=== PATIENT | male | born 1970 | race Caucasian/White ===

== ENCOUNTER 2020-11-16 10:27 | Outpatient (CLI) | payer BC, SELFPAY ==
[2020-11-16 10:46] LABS: Basophils Percent Auto 0.3 % (0.2-1.2); Eosinophils Absolute Auto 0.1 K/mm3 (0-0.3); Eosinophils Percent Auto 1.6 % (0-4.4); Hematocrit 44.5 % (42.0-52.0); Hemoglobin 15.2 g/dL (14.0-18.0); Immature Granulocyte Absolute 0.04 K/mm3 (0.00-0.031); Immature Granulocyte Percent A 0.6 % (0-0.5); Lymphocytes Absolute Auto 1.91 K/mm3 (0.9-3.2); Lymphocytes Percent Auto 30.6 % (18.3-44.2); Mean Corpuscular HGB Conc 34.2 g/dl (32-36); Mean Corpuscular Hemoglobin 29.9 pg (26-34); Mean Corpuscular Volume 87.4 fl (80-100); Mean Platelet Volume 10.2 fl (7.4-10.4); Monocytes Absolute Auto 0.5 K/mm3 (0.1-0.6); Monocytes Percent Auto 8.5 % (2.6-8.5); Neutrophils Absolute Auto 3.6 K/mm3 (1.3-6.7); Neutrophils Percent Auto 58.4 % (45.5-73.1); Platelet Count Result 196 k/mm3 (150-375); Red Blood Count 5.09 M/mm3 (4.6-6.20); Red Cell Distribution Width 13.5 % (11.5-14.5); White Blood Count 6.2 K/mm3 (4.5-10.0)
[2020-11-16 10:58] LABS: Alanine Aminotransferase 39 U/L (4-50); Albumin Level 4.1 g/dL (3.5-5.1); Alkaline Phosphatase 77 U/L (38-126); Anion Gap 6 mmol/L (8-16); Aspartate Amino Transferase 26 U/L (17-59); Bilirubin,Total 0.4 mg/dL (0.2-1.3); Blood Urea Nitrogen 15 mg/dL (9-20); Calcium 8.6 mg/dL (8.4-10.2); Carbon Dioxide 29 mmol/L (22-30); Chloride 103 mmol/L (98-107); Cholesterol 169 mg/dL (0-200); Estimated Glomerular Filt Rate > 60; Glucose 99 mg/dL (75-110); HDL Direct 36 mg/dL; Potassium 4.5 mmol/L (3.4-5.0); Sodium 138 mmol/L (137-145); Triglycerides 130 mg/dL (<150)
[2020-11-16 11:09] LABS: LDL Cholesterol Direct 103 mg/dL
== END 2020-11-16 10:28 | disposition home or self-care (01) ==
PROVIDERS: PCP Internal Medicine; Visit Provider Nurse Practitioner
DX: E78.5 Hyperlipidemia, unspecified (principal); I10 Essential (primary) hypertension
CPT/HCPCS: 36415; 80053; 80061; 85025

== ENCOUNTER 2021-09-08 10:49 | Outpatient (CLI) | payer BC, SELFPAY ==
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
== END 2021-09-08 10:50 | disposition home or self-care (01) ==
PROVIDERS: PCP Internal Medicine; Visit Provider Clinical Nurse Specialist
DX: M47.812 Spondylosis without myelopathy or radiculopathy, cervical region (principal)
CPT/HCPCS: 72040

== ENCOUNTER 2022-01-04 08:51 | Outpatient (CLI) | payer BC, SELFPAY ==
[2022-01-04 09:36] LABS: Hematocrit 42.3 % (42.0-52.0); Hemoglobin 14.2 g/dL (14.0-18.0); Mean Corpuscular HGB Conc 33.6 g/dl (32-36); Mean Corpuscular Hemoglobin 29.8 pg (26-34); Mean Corpuscular Volume 88.7 fl (80-100); Mean Platelet Volume 10.8 fl (7.4-10.4); Platelet Count Result 190 k/mm3 (150-375); Red Blood Count 4.77 M/mm3 (4.6-6.20); Red Cell Distribution Width 13.9 % (11.5-14.5); White Blood Count 6.4 K/mm3 (4.5-10.0)
[2022-01-04 09:53] LABS: Alanine Aminotransferase 30 U/L (4-50); Alkaline Phosphatase 69 U/L (38-126); Anion Gap 5 mmol/L (8-16); Aspartate Amino Transferase 26 U/L (17-59); Bilirubin,Total 0.4 mg/dL (0.2-1.3); Blood Urea Nitrogen 15 mg/dL (9-20); Calcium 8.5 mg/dL (8.4-10.2); Carbon Dioxide 27 mmol/L (22-30); Chloride 105 mmol/L (98-107); Cholesterol 144 mg/dL (0-200); Estimated Glomerular Filt Rate > 60; Glucose 106 mg/dL (65-110); HDL Direct 32 mg/dL; Potassium 4.6 mmol/L (3.4-5.0); Sodium 137 mmol/L (137-145); Triglycerides 133 mg/dL (<150)
[2022-01-04 10:03] LABS: LDL Cholesterol Direct 79 mg/dL
== END 2022-01-04 08:52 | disposition home or self-care (01) ==
LOC: ANHLAB 08:53
PROVIDERS: PCP Internal Medicine; Visit Provider Nurse Practitioner
DX: I10 Essential (primary) hypertension (principal)
CPT/HCPCS: 36415; 80053; 80061; 85025

== ENCOUNTER 2023-06-30 19:08 | Emergency (ER) | payer BC, SELFPAY ==
--- NOTE | ~2023-06-30 | XR_ITS ---
EXAMINATION: XR chest 1V portable DATE: 06/30/2023 20:21 INDICATION: Wheezing. Cough. Shortness of breath. TECHNIQUE: A single frontal view of the chest was obtained. COMPARISON: None. FINDINGS: There are airspace opacities in right lower lung zone. No pleural effusion or pneumothorax. The heart size is normal. IMPRESSION: 1. Airspace opacities in right lower lung zone, consistent with atelectasis versus pneumonia. Reviewed, dictated and finalized at location E. IMPRESSION: 1. Airspace opacities in right lower lung zone, consistent with atelectasis kaylie manny pneumonia.
[2023-06-30 19:10] VITALS: BP 194/81; PULSE 84; RESP 16; TEMP 36.3; O2SAT 98
[2023-06-30] MEDS: ACETAMINOPHEN 500 MG TABLET 1000 MG PO (19:41)
[2023-06-30 19:45] VITALS: O2SAT 98
[2023-06-30] MEDS: ALBUTEROL SULFATE NEB 2.5 MG/3 ML INH 5 MG INHALATION (20:03)
[2023-06-30] MEDS: IPRATROPIUM BR 0.02% INH SOLN 0.5 MG/2.5 ML VIAL INHALATION (20:03)
[2023-06-30 20:04] VITALS: PULSE 80; RESP 16
[2023-06-30 20:23] LABS: Influenza A QL RT-PCR Negative (Negative); Influenza B QL RT-PCR Negative (Negative); RSV RNA, RT-PCR Negative (Negative); SARS-CoV-2 RNA PCR Negative (Negative)
--- NOTE | 2023-06-30 20:25 | ED.GENADULT ---
HPI - General Adult General Chief complaint: Fever Stated complaint: cough, low grade fever Time Seen by Provider: 06/30/23 19:20 History of Present Illness HPI narrative: This is a 52-year-old male presenting ED with chief complaint of cold symptoms. Patient says that he has been having a cough for about 7 days. He has had some subjective fevers and chills was temperature is never gone above 99. Patient denies chest pain, difficulty breathing, abdominal pain, nausea vomiting diarrhea or sore throat. Patient is for help with his cough. Related Data Home Medications Medication Instructions Recorded Confirmed omega-3 fatty acids 1,000 mg 1,000 mg PO DAILY 11/24/20 01/03/22 capsule (Fish Oil Concentrate) Allergies Allergy/AdvReac Type Severity Reaction Status Date / Time No Known Allergies Allergy Mild Verified 06/30/23 19:08 [facility] Past Medical History Medical History Cervical spondylosis Hyperlipidemia Hypertension Lipoma removed 2015 Family History Family History Father Hypertension Sibling Acute myocardial infarction Grandparent Acute myocardial infarction Mother Atrial fibrillation Social History Social History Smoking status: Never smoker Smoking end date: 11/18/11 Alcohol intake: current Exam Narrative: APPEARANCE: No apparent distress. Head: atraumatic. EYES: EOMI, NOSE: Atraumatic NECK: Trachea midline RESPIRATORY: No increased rate of breathing, scattered expiratory wheezes CARDIOVASCULAR: RRR, no peripheral edema ABDOMINAL: Non-distended MUSCULOSKELETAl: No obvious deformities NEURO: Alert. Moving 4/4 extremities SKIN:: Warm, dry. Normal color PSYCHIATRIC: Normal affect Course Vital Signs Vital signs: Vital Signs Temperature 97.4 F L 06/30/23 19:10 Pulse Rate 84 06/30/23 19:10 Respiratory Rate 16 06/30/23 19:10 Blood Pressure 194/81 H 06/30/23 19:10 Pulse Oximetry 98 06/30/23 19:10 Oxygen Delivery Room Air 06/30/23 19:10 Temperature 97.4 F L 06/30/23 19:10 Pulse Rate 80 06/30/23 20:04 Respiratory Rate 16 06/30/23 20:04 Blood Pressure 194/81 H 08/13/23 19:10 Pulse Oximetry 98 06/30/23 19:45 Oxygen Delivery Room Air 06/30/23 19:45 Medical Decision Making [facility] Narrative Medical decision making narrative: -Presentation: 52-year-old male presenting with 7 days of cough. 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 Chest x-ray showed opacities in the right lower lobe, atelectasis versus pneumonia. -Interventions: DuoNeb treatment, dexamethasone, Augmentin, doxycycline -Shared decision making / Disposition: 52-year-old male presenting with cough, lung findings and infiltrates on x-ray. He is well-appearing with stable vital signs on requiring supplemental oxygen. He will be discharged on a course of antibiotics for community-acquired pneumonia. -RX Augmentin, doxycycline, Motrin, Tylenol Vital Signs Vital Signs: Vital Signs Temperature 97.4 F L 06/30/23 19:10 Pulse Rate 84 06/30/23 19:10 Respiratory Rate 16 06/30/23 19:10 Blood Pressure 194/81 H 06/30/23 19:10 Pulse Oximetry 98 06/30/23 19:10 Oxygen Delivery Room Air 06/30/23 19:10 Temperature 97.4 F L 06/30/23 19:10 Pulse Rate 80 06/30/23 20:04 Respiratory Rate 16 06/30/23 20:04 Blood Pressure 194/81 H 06/30/23 19:10 Pulse Oximetry 98 06/30/23 19:45 Oxygen Delivery Room Air 06/30/23 19:45 Lab Data Labs: Lab Results 06/30/23 Range/Units 19:43 Influenza A (RT-PCR) Negative (Negative)
[2023-06-30] MEDS: DOXYCYCLINE HYCLATE 100 MG TABLET PO (20:39)
[2023-06-30] MEDS: AMOXICILLIN/CLAVULANATE K 875-125 MG TAB 1 TABLET PO (20:39)
[2023-06-30 20:46] VITALS: BP 188/72; PULSE 89; RESP 20; O2SAT 96
== END 2023-06-30 20:48 | disposition home or self-care (01) ==
PROVIDERS: Emergency Provider Emergency Medicine; PCP Internal Medicine
DX: J18.9 Pneumonia, unspecified organism (principal); Z20.822 Contact with and (suspected) exposure to COVID-19; E78.5 Hyperlipidemia, unspecified; I10 Essential (primary) hypertension
CPT/HCPCS: 71045; 87637; 94640; 96372; 99283; A9270; J1100

== ENCOUNTER 2023-07-12 13:40 | Emergency (ER) | payer BC, SELFPAY ==
[2023-07-12] VITALS (11 sets, daily range): BP systolic 144–187; BP diastolic 87–103; PULSE 72–77; RESP 18; TEMP 37.1; O2SAT 95–98
--- NOTE | ~2023-07-12 | XR_ITS ---
EXAMINATION: XR chest 1V portable INDICATION: Cough and shortness of breath TECHNIQUE: Portable AP chest at 1559 hours COMPARISON: 06/30/2023 FINDINGS: The lungs are free of acute opacities. No pleural effusion or pneumothorax. The cardiomedia stinal silhouette is normal. IMPRESSION: 1. No acute cardiopulmonary abnormality. Reviewed, dictated and finalized at location A.
[2023-07-12 16:26] LABS: Basophils Percent Auto 0.4 % (0.2-1.2); Eosinophils Absolute Auto 0.2 K/mm3 (0-0.3); Eosinophils Percent Auto 3.2 % (0-4.4); Hematocrit 46.6 % (42.0-52.0); Hemoglobin 15.2 g/dL (14.0-18.0); Immature Granulocyte Absolute 0.04 K/mm3 (0.00-0.031); Immature Granulocyte Percent A 0.6 % (0-0.5); Lymphocytes Absolute Auto 2.18 K/mm3 (0.9-3.2); Lymphocytes Percent Auto 31.4 % (18.3-44.2); Mean Corpuscular HGB Conc 32.6 g/dl (32-36); Mean Corpuscular Hemoglobin 29.9 pg (26-34); Mean Corpuscular Volume 91.7 fl (80-100); Mean Platelet Volume 10.6 fl (7.4-10.4); Monocytes Absolute Auto 0.6 K/mm3 (0.1-0.6); Monocytes Percent Auto 8.6 % (2.6-8.5); Neutrophils Absolute Auto 3.9 K/mm3 (1.3-6.7); Neutrophils Percent Auto 55.8 % (45.5-73.1); Platelet Count Result 214 k/mm3 (150-375); Red Blood Count 5.08 M/mm3 (4.6-6.20); Red Cell Distribution Width 13.9 % (11.5-14.5)
[2023-07-12 16:35] LABS: Alanine Aminotransferase 38 U/L (6-50); Albumin Level 4.4 g/dL (3.5-5.1); Alkaline Phosphatase 73 U/L (38-126); Anion Gap 6 mmol/L (8-16); Aspartate Amino Transferase 28 U/L (17-59); Bilirubin,Total 0.5 mg/dL (0.2-1.3); Blood Urea Nitrogen 11 mg/dL (9-20); Calcium 8.6 mg/dL (8.4-10.2); Carbon Dioxide 28 mmol/L (22-30); Chloride 104 mmol/L (98-107); Estimated Glomerular Filt Rate > 60; Glucose 96 mg/dL (65-110); Potassium 4.4 mmol/L (3.4-5.0); Sodium 138 mmol/L (137-145)
--- NOTE | 2023-07-12 16:39 | ED.URI ---
HPI - URI/Sore Throat General Chief Complaint: Upper Respiratory Infection Stated Complaint: pna symptoms not getting better Time Seen by Provider: 07/12/23 16:28 History of Present Illness HPI Narrative: Patient is a 52-year-old male here with respiratory symptoms. He states that a few weeks ago he was diagnosed with pneumonia, placed on Augmentin and doxycycline and completed this antibiotic course. He was slowly improving on this antibiotic and seems to have plateaued. He notes he continues to have a cough with some sputum production. Sputum is green or yellow in color. He is additionally noticed some wheezing which she has been using a inhaler for. The inhaler seems to help with his wheezing. He contact his primary care doctor who advised to come into the emergency department for evaluation given continuation of symptoms. He denies any fever chills. He denies any sick contacts or any symptoms. No headache, rhinorrhea. He notes that he was tested for COVID on last visit. Related Data Home Medications Medication Instructions Recorded Confirmed omega-3 fatty acids 1,000 mg 1,000 mg PO DAILY 11/24/20 07/04/23 capsule (Fish Oil Concentrate) Allergies Allergy/AdvReac Type Severity Reaction Status Date / Time No Known Allergies Allergy Mild Verified 07/12/23 15:47 Review of Systems Review of Systems: CONSTITUTIONAL: Denies fever, chills, or sweats. EYES: Denies visual changes, redness, or discharge. ENT: Denies rhinorrhea, congestion, sore throat, or otalgia. CARDIOVASCULAR: Denies chest pain, palpitations, or edema. RESPIRATORY: cough and dyspnea. GASTROINTESTINAL: Denies abdominal pain, nausea, vomiting, or diarrhea. GENITOURINARY: Denies dysuria or hematuria. SKIN: Denies rash or itching. MUSCULOSKELETAL: Denies back pain, joint pain, or myalgia. NEUROLOGIC: Denies headache, numbness, or weakness. PSYCHIATRIC: Denies anxiety or depression. [facility] Past Medical History Medical History Cervical spondylosis Hyperlipidemia Hypertension Lipoma removed 2015 Family History Family History Father Hypertension Sibling Acute myocardial infarction Grandparent Acute myocardial infarction Mother Atrial fibrillation Social History Social History (Updated 07/04/23 @ 13:51 by Shanna Bruno [facility]) Smoking status: Never smoker Smoking end date: 11/18/11 Alcohol intake: current Lack of Transportation: No Lack of Food: Never True Current Housing: I Have Housing Concerned About Future Housing: No Difficulty Paying Gas/Electric Bills: No Difficulty Paying for Meds: No Currently Unemployed: No Education: Master's Degree or Higher Difficulty w/ Childcare or Family Care: No Exam Narrative: GENERAL: Well-appearing, well-nourished, and in no acute distress. HEAD: Normocephalic, atraumatic. EYES: PERRLA and EOMI. ENT: Nares clear. Mucous membranes moist. NECK: Supple. CHEST: Faint expiratory wheeze at the bases. No respiratory distress. HEART: Regular rate and rhythm. Normal peripheral pulses. ABDOMEN: Soft, nontender, nondistended. EXTREMITIES: Normal range of motion. No edema. SKIN: Warm, dry, no rash. NEURO: No focal deficits. Alert and oriented x3. PSYCH: Normal mood and affect. Course Course Emergency Course: Chart review performed. Patient here with URI symptoms. Patient was diagnosed with CAP after an ED visit here on 06/30/23. He had been on Augmentin and Doxycycline. He was improving slowly on antibiotics per PCP note. Triage vitals show hypertension, no hypoxia, no fever. Triage lab work shows no leukocytosis, normal electrolytes, CXR negative. Patient seen evaluated. Blood pressures improved. History and exam consistent with possible atypical pneumonia. Will give macrolide antibiotic, azithromycin as well as refilled the albuterol inhale
== END 2023-07-12 17:58 | disposition home or self-care (01) ==
PROVIDERS: Emergency Medicine; Emergency Provider Student in an Organized Health Care Education/Training Program; PCP Internal Medicine
DX: J18.9 Pneumonia, unspecified organism (principal); R05.2 Subacute cough; E78.5 Hyperlipidemia, unspecified; I10 Essential (primary) hypertension
CPT/HCPCS: 36415; 71045; 80053; 85025; 99283

== ENCOUNTER 2023-07-17 18:13 | Inpatient (IN) | payer BC, SELFPAY ==
--- NOTE | ~2023-07-17 | XR_ITS ---
EXAMINATION: XR chest 2V Exam Date/Time: 07/17/2023 18:30 CDT HISTORY: DYSPNEA- HTN Comparison: 07/12/2023. RESULT: Lines, tubes, and devices: None. Lungs and pleura: Clear. Cardiomediastinal silhouette: Stable. Other: No acute osseous or upper abdominal finding. IMPRESSION: No acute cardiopulmonary process. Reviewed, dictated and finalized at location K.
--- NOTE | ~2023-07-17 | CT_ITS ---
EXAMINATION: CTA chest PE protocol DATE: 07/17/2023 21:59 INDICATION: dyspnea. elevated d dimer TECHNIQUE: Computed tomography angiography (CTA) of the chest was performed with 100 mL Omnipaque-350 intravenous contrast timed to evaluate the pulmonary arteries. Coronal maximum intensity projection 3D-reconstructions were created by the technologist. The dose-length product (DLP) was 1200.69 mGy-cm . Automated exposure control and iterative reconstruction technique were employed. COMPARISON: X-ray chest, same date. FINDINGS: Lung parenchyma and airways: Clear. Pleura: Unremarkable. Thoracic inlet, axillae and chest wall: Unremarkable. Thoracic aorta: Normal. Mediastinum: Enlarged prevascular and subcarinal lymph nodes. Heart and pericardium: Moderate volume pericardial effusion. Coronary artery calcifications: Absent. Upper abdomen: Ill-defined 9 mm hypodensity in the left liver lobe. Enlarged edwardo hepatic lymph node . Bones: No acute osseous finding. DISH. Pulmonary arteries: Study quality: There is considerable respiratory motion artifact in the lungs whi ch limits evaluation primarily in the segmental and subsegmental branches in the lower lobes. No pulm onary emboli detected. IMPRESSION: Motion limited examination which could obscure segmental or subsegmental emboli in the lower lobes. N o central embolus or embolus within the segmental branches of the upper lobes or right middle lobe. Moderate pericardial effusion. Mediastinal and edwardo hepatic lymphadenopathy. 9 mm left liver lobe hypodensity, likely benign and requiring no additional follow-up unless the sherrie ent is at high risk (known malignancy with propensity to metastasize to the liver, cirrhosis, or othe r hepatic risk factors) in which case consider follow-up MRI in 3-6 months. Reviewed, dictated and finalized at location K. IMPRESSION: Motion limited examination which could obscure segmental or subsegmental emboli in the lower lobes. No central embolus or embolus within the segmental branche s of the upper lobes or right middle lobe. Moderate pericardial effusion. Mediastinal and edwardo hepatic lymphadenopathy. 9 mm left liver lobe hypodensity, likely benign and requiring no additional fol low-up unless the patient is at high risk (known malignancy with propensity to metastasize to the liver, cirrhosis, or other hepatic risk factors) in which ca se consider follow-up MRI in 3-6 months.
--- NOTE | 2023-07-17 18:49 | ECG_ITS ---
Measurements Intervals Anselmo Rate: 84 P: 71 WI: 139 QRS: 61 QRSD: 104 T: 31 QT: 348 QTc: 411 Interpretive Statements SINUS RHYTHM LOW QRS VOLTAGE IN PRECORDIAL LEADS [QRS DEFLECTION < 1.0 mV IN CHEST LEADS] POSSIBLE INFERIOR MYOCARDIAL INFARCTION , PROBABLY OLD [30 ms Q WAVE IN II/aVF] ABNORMAL ECG NO PREVIOUS ECG AVAILABLE FOR COMPARISON Electronically Signed On 07-18-2023 9:44:33 CDT by Orion Baker M.D.
[2023-07-17] MEDS: ALBUTEROL SULFATE NEB 2.5 MG/3 ML INH INHALATION ×2 (19:02→21:22)
[2023-07-17 19:03] VITALS: PULSE 83; RESP 18
[2023-07-17] MEDS: IPRATROPIUM BR 0.02% INH SOLN 0.5 MG/2.5 ML VIAL INHALATION ×2 (19:03→21:23)
[2023-07-17 19:05] LABS: Basophils Percent Auto 0.5 % (0.2-1.2); Eosinophils Absolute Auto 0.3 K/mm3 (0-0.3); Eosinophils Percent Auto 3.7 % (0-4.4); Hematocrit 44.9 % (42.0-52.0); Immature Granulocyte Absolute 0.03 K/mm3 (0.00-0.031); Immature Granulocyte Percent A 0.4 % (0-0.5); Lymphocytes Absolute Auto 1.64 K/mm3 (0.9-3.2); Lymphocytes Percent Auto 20.3 % (18.3-44.2); Mean Corpuscular HGB Conc 33.4 g/dl (32-36); Mean Corpuscular Hemoglobin 29.7 pg (26-34); Mean Corpuscular Volume 88.9 fl (80-100); Mean Platelet Volume 10.3 fl (7.4-10.4); Monocytes Absolute Auto 0.8 K/mm3 (0.1-0.6); Monocytes Percent Auto 9.9 % (2.6-8.5); Neutrophils Absolute Auto 5.3 K/mm3 (1.3-6.7); Neutrophils Percent Auto 65.2 % (45.5-73.1); Platelet Count Result 214 k/mm3 (150-375); Red Blood Count 5.05 M/mm3 (4.6-6.20); Red Cell Distribution Width 13.8 % (11.5-14.5); White Blood Count 8.1 K/mm3 (4.5-10.0)
[2023-07-17 19:16] LABS: Alanine Aminotransferase 32 U/L (6-50); Albumin Level 4.2 g/dL (3.5-5.1); Alkaline Phosphatase 82 U/L (38-126); Anion Gap 12 mmol/L (8-16); Aspartate Amino Transferase 24 U/L (17-59); Bilirubin,Total 0.4 mg/dL (0.2-1.3); Blood Urea Nitrogen 13 mg/dL (9-20); Calcium 8.4 mg/dL (8.4-10.2); Carbon Dioxide 22 mmol/L (22-30); Chloride 104 mmol/L (98-107); Estimated CRCL calculation 112 ml/min; Estimated Glomerular Filt Rate > 60; Glucose 111 mg/dL (65-110); Potassium 4.5 mmol/L (3.4-5.0); Sodium 138 mmol/L (137-145)
[2023-07-17 19:23] VITALS: PULSE 83; RESP 18
[2023-07-17 19:36] VITALS: BP 160/61; PULSE 83; RESP 15; O2SAT 93
--- NOTE | 2023-07-17 20:05 | ED.SOB ---
HPI - SOB/Dyspnea General Chief Complaint: Shortness of Breath/Dyspnea Stated Complaint: TROUBLE BREATHING Time Seen by Provider: 07/17/23 18:34 History of Present Illness HPI Narrative: 52-year-old male with history of hyperlipidemia and hypertension reports for evaluation for shortness of breath with a cough since 06/23, worsening over the past 2 days. Patient reported to the ED on 06/30 and was treated for focal pneumonia with doxycycline and Augmentin. He reports taking medication as directed without missing doses and states he felt a little better than plateaued became worse again. He then went to his primary care provider who advised him to come back to the ER for further evaluation. He was evaluated again in the ED on 07/12 with a normal chest x-ray and sent home with azithromycin to cover for atypicals as well as a inhaler. Patient states he did not have any improvement with the azithromycin and does have improvement with inhaler at times. He states however the past 2 days he has had significantly worsening cough and shortness of breath. Reports his cough is productive with yellow and green sputum. States he had low-grade fevers no greater than 99 degrees at the onset of symptoms, has not had a fever since. Reports the dyspnea is worse coughing and lying flat, improved when sitting up. He denies exertional dyspnea. He denies chest pain, back pain, headache, nasal congestion or sore throat, otalgia, abdominal pain, nausea or vomiting, diarrhea. He denies history of COPD, CHF or asthma. States he stopped smoking 19 years ago. He does report lower extremity edema that he has had at baseline for the past few years, no acute changes. Related Data Home Medications Medication Instructions Recorded Confirmed omega-3 fatty acids 1,000 mg 1,000 mg PO DAILY 11/24/20 07/18/23 capsule (Fish Oil Concentrate) benazepril 40 mg tablet 40 mg PO DAILY 07/18/23 07/18/23 Allergies Allergy/AdvReac Type Severity Reaction Status Date / Time No Known Allergies Allergy Mild Verified 07/12/23 15:47 Review of Systems Review of Systems: CONSTITUTIONAL: Denies fever, chills EYES: Denies visual changes, redness, or discharge. ENT: Denies rhinorrhea, congestion, sore throat, or otalgia. CARDIOVASCULAR: Denies chest pain, palpitations, or edema. RESPIRATORY: See HPI GASTROINTESTINAL: Denies abdominal pain, nausea, vomiting, or diarrhea. GENITOURINARY: Denies dysuria or hematuria. SKIN: Denies rash or itching. MUSCULOSKELETAL: Denies back pain, joint pain, or myalgia. NEUROLOGIC: Denies headache, numbness, dizziness, or weakness. PSYCHIATRIC: Denies anxiety or depression. [facility] Past Medical History Medical History (Updated 07/18/23 @ 00:23 by Justin Farah MD) Cervical spondylosis COPD (chronic obstructive pulmonary disease) Hyperlipidemia Hypertension Lipoma removed 2016 Morbid obesity due to excess calories Family History Family History Father Hypertension Sibling Acute myocardial infarction Grandparent Acute myocardial infarction Mother Atrial fibrillation Social History Social History Smoking status: Former smoker Smoking end date: 11/18/11 Alcohol intake: current Drinks per week: 8 Substance use: never Lack of Transportation: No Lack of Food: Never True Current Housing: I Have Housing Concerned About Future Housing: No Difficulty Paying Gas/Electric Bills: No Difficulty Paying for Meds: No Currently Unemployed: No Education: Don't Know Difficulty w/ Childcare or Family Care: No Spiritual care concerns: No Exam Narrative: GENERAL: Well-appearing, in no acute distress. Patient resting comfortably in exam bed. He is pleasant and conversational. HEAD: Normocephalic EYES: PERRLA ENT: Nares clear. Mucous membranes moist. Oropharynx without tonsillar hypertrophy exudat
[2023-07-17 20:12] VITALS: BP 166/82; PULSE 79; RESP 15; TEMP 36.9; O2SAT 92
[2023-07-17 20:34] LABS: NT Pro B Type Natriuretic Pept 64 pg/mL (19.9-100); Troponin I < 0.012 ng/mL (0.000-0.034)
[2023-07-17 20:35] LABS: D Dimer 0.51 ug/mL (<0.48)
[2023-07-17] MEDS: methylPREDNISolone SOD SUCC 125 MG VIAL IV PUSH (20:39)
[2023-07-17 21:20] VITALS: PULSE 83; RESP 18
[2023-07-17 21:32] LABS: Alveolar/Arterial O2 Gradient 33.8 mmHg; Fractional Inspired Oxygen 21 %; HCO3 ABG 23.5 mEq/l (22.0-26.0); Oxygen Content ABG 20.7 %vol (16.0-22.0); Oxyhemoglobin 93.2 % THb (90.0-100.0); PCO2 ABG 38.8 mmHg (35.0-45.0); PO2 ABG 69.5 mmHg (80.0-100.0); PO2 FiO2 Ratio Arterial Blood 3.31 %; Total Hemoglobin 15.8 g/dL (12.0-18.0)
[2023-07-17 21:33] LABS: Device ROOM AIR; Modified Allen's Test Pass; Site Drawn RIGHT RADIAL
[2023-07-17 21:35] VITALS: PULSE 77; RESP 18
--- NOTE | 2023-07-17 23:51 | PM.IMHP ---
H&P: HPI History of Present Illness Date/Time: 07/17/23 23:51 Chief Complaint: Patient came to the ER for evaluation with complaints of worsening shortness of breath Narrative: Our patient is very pleasant morbidly obese 52 years old white male who was recently diagnosed with pneumonia a couple weeks ago and was treated with doxycycline and Augmentin. He felt a little better, but then had worsening of his symptoms. He went back to his PCP and was sent back to the ER for evaluation last week where he was worked up with a chest x-ray and sent home with azithromycin to cover for atypical pneumonias. He did not feel much better and came back today for the 3rd time. His O2 sats were in early 90s and he had wheezing in his chest. CT scan of the chest was done which showed mild pericardial effusion. Cardiology was consulted who advised to admit patient for medical management, echocardiogram and further workup. Review of Systems Review of Systems: Patient complains of cough, wheezing and judgment of breath. He denies any chest pain, palpitations, fever rigor chills, nausea vomiting or abdominal pain. All systems reviewed & are unremarkable except as noted in HPI and below PMFSH Past Medical History Medical History (Updated 07/18/23 @ 00:23 by Justin Farah MD) Cervical spondylosis COPD (chronic obstructive pulmonary disease) Hyperlipidemia Hypertension Lipoma removed 2016 Morbid obesity due to excess calories Family History Family History Father Hypertension Sibling Acute myocardial infarction Grandparent Acute myocardial infarction Mother Atrial fibrillation Social History Social History Smoking status: Never smoker Smoking end date: 11/18/11 Alcohol intake: current Lack of Transportation: No Lack of Food: Never True Current Housing: I Have Housing Concerned About Future Housing: No Difficulty Paying Gas/Electric Bills: No Difficulty Paying for Meds: No Currently Unemployed: No Education: Master's Degree or Higher Difficulty w/ Childcare or Family Care: No Meds Home Medications and Allergies Home Medications Medication Instructions Recorded Confirmed Type omega-3 fatty acids 1,000 mg 1,000 mg PO DAILY 11/24/20 07/04/23 History capsule (Fish Oil Concentrate) acetaminophen 500 mg tablet 1,000 mg PO TID PRN francine 7 days #42 06/30/23 07/04/23 Rx tabs amoxicillin 875 mg-potassium 1 tablet PO Q12H #14 tabs 06/30/23 07/04/23 Rx clavulanate 125 mg tablet doxycycline monohydrate 100 mg 100 mg PO DAILY #14 tabs 06/30/23 07/04/23 Rx tablet ibuprofen 800 mg tablet 800 mg PO TID PRN pain 7 days #21 06/30/23 07/04/23 Rx tabs albuterol sulfate 90 mcg/actuation 1 inh inhalation Q4H PRN shortness 07/04/23 07/04/23 Rx aerosol inhaler of breath or wheezing #8.5 grams atorvastatin 20 mg tablet 20 mg PO QHS #90 tabs 07/04/23 07/04/23 Rx benazepril 40 mg tablet See Rx Instructions .Route 07/04/23 07/04/23 Rx .COMPLEX #90 tabs verapamil 180 mg 24 hr 360 mg PO DAILY 90 days #180 caps 07/04/23 07/04/23 Rx capsule,extended release albuterol sulfate 90 mcg/actuation 2 puff inhalation QID PRN 07/12/23 Rx aerosol inhaler shortness of breath or wheezing #8.5 grams azithromycin 250 mg tablet See Rx Instructions PO .COMPLEX #6 07/12/23 Rx tabs Allergies Allergy/AdvReac Type Severity Reaction Status Date / Time No Known Allergies Allergy Mild Verified 07/12/23 15:47 Vital Signs Vital Signs - 24 hr 07/17/23 19:03 07/17/23 18:40 07/17/23 19:23 Temperature Pulse Rate 83 83 Respiratory Rate 18 18 Blood Pressure Pulse Oximetry Oxygen Delivery Room Air 07/17/23 19:36 07/17/23 20:12 07/17/23 21:20 Temperature 36.9 C Pulse Rate 83 79 83 Respiratory Rate 15 15 18 Blood Pressure 160/61 H 166/82 H Pulse Oximetry 93 92 Ox
[2023-07-18] VITALS (16 sets, daily range): BP systolic 146–197; BP diastolic 62–86; PULSE 75–97; RESP 14–20; TEMP 36.2–37.2; O2SAT 92–96; BMI 42.7
--- NOTE | 2023-07-18 | ECHO_ITS ---
Patient Info Name: Carlos Perez Age: 52 years : 1970 Gender: Male Ht: 74 in Wt: 339 lbs BSA: 2.90 m2 HR: 91 bpm BP: 185 / 71 mmHg Heart Rhythm: Sinus Rhythm Technical Quality: Poor Exam Date: 07/18/2023 2:10 PM Exam Location: [facility] Patient Status: Outpatient Admit Date: 07/17/2023 Staff Ordering Physician: Deisy Galicia PA-C Pet Care Associate: Amber Salazar RDCS Attending Provider: Justin Farah MD Referring Physician: Grayson LOGAN; Exam Type: CA echo dop color flow w con Study Info Indications - PERICARDIAL EFFUSION Complete two-dimensional, color flow and Doppler transthoracic echocardiogram is performed with contrast to opacify the left ventricle and to improve the deliniation of the left ventricle endocardial borders. Contrast/Agitated Saline Contrast/Ag. Saline: Definity Amount: 4.00 ml Administered By: Amber Salazar RDCS Existing IV Access: Yes IV Access Condition: patent with no signs of infiltration Reason for Poor Study: patient body habitus Summary 1. Concentric left ventricular hypertrophy with normal size and hyperdynamic systolic function. 2. No valvular dysfunction. 3. Small to moderate-sized pericardial effusion primarily posterior and lateral to the heart. 4. No echocardiographic signs of tamponade. Left Ventricle Left ventricular chamber dimension is normal. Left ventricular systolic function is hyperdynamic, estimated at >70%. There is mild concentric increased left ventricular wall thickness. The left ventricular diastolic function is grade I diastolic dysfunction. Right Ventricle Right ventricular chamber dimension is normal. Left Atria Left atrial chamber dimension is normal. Right Atria Right atrial chamber dimension is normal. Aortic Valve The aortic valve is normal. Pulmonic Valve The pulmonic valve is not well visualized. Mitral Valve The mitral valve has normal leaflets. Tricuspid Valve The tricuspid valve leaflets are not well visualized. Pericardium/Pleural There is small circumferential pericardial effusion. Aorta The aortic root size at the sinus of Valsalva is normal. Left Ventricular Outflow Tract Name Value Normal LVOT 2D LVOT Diameter 2.07 cm LVOT Doppler LVOT Peak Gradient 7 mmHg LVOT Mean Gradient 5 mmHg LVOT VTI 30.43 cm LVOT VTI/AV VTI Ratio 0.87 LVOT Stroke Volume 102.23 ml LVOT CO 9.34 l/min LVOT CI 3.22 L/min/m2 Pulmonic Valve Name Value Normal RVOT Doppler RVOT Peak Gradient 3 mmHg Mitral Valve Name Value Normal
--- NOTE | 2023-07-18 00:58 | ADMGEN ---
This patient, Carlos Perez, was admitted to Medical Room 247-. Patient/family oriented to hospital policies and general routines including ID bracelet, bed and alarms, visiting hours, pain management, procedures, bathroom and other care routines, personal items, smoking policy, room service/diet, and visiting hours. Information on how to activate the Rapid Response Team has been discussed. Patient/Family are encouraged to report perceived risks to care and to ask questions if they do not understand what they are told or what they should do.
[2023-07-18] MEDS: methylPREDNISolone SOD SUCC 125 MG VIAL 60 MG IV PUSH ×3 (05:14→21:19)
[2023-07-18 05:43] LABS: Basophils Percent Auto 0.2 % (0.2-1.2); Hemoglobin 15.3 g/dL (14.0-18.0); Immature Granulocyte Absolute 0.03 K/mm3 (0.00-0.031); Immature Granulocyte Percent A 0.6 % (0-0.5); Lymphocytes Percent Auto 11.7 % (18.3-44.2); Mean Corpuscular HGB Conc 33.3 g/dl (32-36); Mean Corpuscular Hemoglobin 29.9 pg (26-34); Mean Corpuscular Volume 89.8 fl (80-100); Mean Platelet Volume 10.5 fl (7.4-10.4); Monocytes Absolute Auto 0.1 K/mm3 (0.1-0.6); Monocytes Percent Auto 1.6 % (2.6-8.5); Neutrophils Absolute Auto 4.4 K/mm3 (1.3-6.7); Neutrophils Percent Auto 85.9 % (45.5-73.1); Platelet Count Result 209 k/mm3 (150-375); Red Blood Count 5.12 M/mm3 (4.6-6.20); Red Cell Distribution Width 13.7 % (11.5-14.5); White Blood Count 5.1 K/mm3 (4.5-10.0)
[2023-07-18 06:02] LABS: Anion Gap 5 mmol/L (8-16); Blood Urea Nitrogen 13 mg/dL (9-20); Calcium 8.7 mg/dL (8.4-10.2); Carbon Dioxide 28 mmol/L (22-30); Chloride 102 mmol/L (98-107); Estimated CRCL calculation 149 ml/min; Estimated Glomerular Filt Rate > 60; Glucose 168 mg/dL (65-110); Magnesium 2.2 mg/dL (1.6-2.3); Phosphorus 2.8 mg/dL (2.5-4.5); Potassium 4.5 mmol/L (3.4-5.0); Sodium 135 mmol/L (137-145)
--- NOTE | 2023-07-18 08:57 | PM.CNCAR ---
Assessment and Plan Assessment and plan (1) COPD (chronic obstructive pulmonary disease): Code(s): J44.9 - Chronic obstructive pulmonary disease, unspecified Status: Acute Assessment and Plan: His lungs are very tight and wheezy. He should be treated with steroids and nebulizers and antibiotics. Will consult pulmonology. He also has lymphadenopathy. Likely need a repeat CT scan as an outpatient to monitor for resolution (2) Pericardial effusion: Code(s): I31.39 - Other pericardial effusion (noninflammatory) Status: Acute Assessment and Plan: His pericardial effusion is likely reactionary to his recent pneumonia/bronchitis. There is no clinical evidence of tamponade physiology and I doubt this pericardial effusion is clinically significant. 2D echocardiogram Doppler is ordered will be reviewed. He will likely need a repeat echo as an outpatient to monitor surveillance (3) Hypertension: Qualifiers: Hypertension type: primary hypertension Qualified Code(s): I10 - Essential (primary) hypertension Code(s): I10 - Essential (primary) hypertension Status: Acute Assessment and Plan: Above goal (4) Hyperlipidemia: Qualifiers: Hyperlipidemia type: unspecified Qualified Code(s): E78.5 - Hyperlipidemia, unspecified Code(s): E78.5 - Hyperlipidemia, unspecified Status: Acute Assessment and Plan: continue statin History of Present Illness History of Present Illness Consult date/time: 07/18/23 08:57 Requesting physician: Deisy Galicia PA-C Consult reason: Other (Pericardial effusion) Reason For Visit: Pericardial Effusion Narrative: Reason for consultation: Pericardial effusion Date of service 07/18/2023 Requesting provider: Deisy Galicia History: Patient is a 52-year-old male who started becoming sick on June 23 with a cough. This progressively worsened over the next week and eventually can went to the emergency department where he was diagnosed with pneumonia. He was given dose of steroids which did seem to help his breathing. He was given antibiotics and he completed his course of antibiotics and he did feel little bit better but shortly thereafter started becoming short of breath again. He did follow-up with primary care provider. He went back to the ER because he was not progressing and getting any better and was put on azithromycin. He completed his course of azithromycin but again still felt no better. He was becoming short of breath with minimal activity. He had chest congestion and cough. Cough is productive of yellow-green sputum. He was prescribed some inhalers as an outpatient and in particular albuterol. This did seem to help his breathing but he was using his inhalers very frequently yesterday and because of ongoing and progressively worsening shortness of breath despite treatment, he came to the emergency department for further workup evaluation treatment. He was wheezy. He was treated with steroids as well as nebulizers. In the process of workup a CT scan was performed which showed a moderate pericardial effusion. He was therefore admitted for further workup and evaluation cardiology consultation was triggered because of the pericardial effusion. Patient denies any chest pain, syncope, paroxysmal nocturnal dyspnea, orthopnea. He has been having little lower extremity swelling. No palpitations. With significant coughing, he has become a little lightheaded. Review of Systems Review of Systems: All systems reviewed & are unremarkable except as noted in HPI and below Constitutional: Constitutional: Denies body ache(s) Eyes: Eyes: Denies blurry vision ENT: Reports Normal hearing present Cardiovascular: Cardiovascular: Denies chest pain, Reports leg edema and Denies palpitations Respiratory: Respiratory: Reports cough and Reports dyspnea Gastrointestinal: Gastrointestinal: Denies abdominal pain Genit
[2023-07-18] MEDS: lisinopriL 20 MG TABLET 40 MG PO (09:52)
[2023-07-18] MEDS: VERAPAMIL HCL 180 MG TABLET ER 360 MG PO (09:52)
[2023-07-18] MEDS: OMEGA 3 POLYUNSAT FATTY ACIDS 1 GM CAP PO (09:52)
--- NOTE | 2023-07-18 13:08 | PM.IMPN ---
Progress Note: A&P Assessment and Plan (1) Pericardial effusion: Code(s): I31.39 - Other pericardial effusion (noninflammatory) Status: Acute Assessment and Plan: Patient had moderate pericardial effusion diagnosed incidentally on the CTA of the chest Cardiology was consulted who want to admit the patient in the hospital for further workup Echocardiogram ordered to rule out tamponade (2) Dyspnea: Qualifiers: Dyspnea type: unspecified Qualified Code(s): R06.00 - Dyspnea, unspecified Code(s): R06.00 - Dyspnea, unspecified Status: Acute Assessment and Plan: Likely due to pericardial effusion Continue with the DuoNeb breathing treatments in the hospital Patient received Solu-Medrol 125 mg IV x1 dose in the ER Continue with IV Solu-Medrol in the hospital with switched to oral tapering doses once patient responds clinically CTA chest with PE protocol was done as patient had a mildly elevated D-dimer which ruled out pulmonary embolism Symptoms have improved with steroids. BNP within normal limits (3) COPD (chronic obstructive pulmonary disease): Code(s): J44.9 - Chronic obstructive pulmonary disease, unspecified Status: Acute Assessment and Plan: Patient states that he does not have any chronic lung conditions although he is on albuterol inhalers at home Continue IV Solu-Medrol. DuoNebs (4) Bronchitis: Code(s): J40 - Bronchitis, not specified as acute or chronic Status: Acute Assessment and Plan: Continue IV Solu-Medrol. Mucinex q.12hr Patient had received multiple antibiotics for his pneumonia and his labs are stable hence no more antibiotics will be added (5) Hyperlipidemia: Qualifiers: Hyperlipidemia type: unspecified Qualified Code(s): E78.5 - Hyperlipidemia, unspecified Code(s): E78.5 - Hyperlipidemia, unspecified Status: Acute Assessment and Plan: Continue atorvastatin (6) Hypertension: Qualifiers: Hypertension type: primary hypertension Qualified Code(s): I10 - Essential (primary) hypertension Code(s): I10 - Essential (primary) hypertension Status: Acute Assessment and Plan: Continue benazepril Subjective Date/time seen: 07/18/23 13:08 Interval history: Patient states that his symptoms have much improved with IV steroids and breathing treatments. States that he had orthopnea and dyspnea on exertion approximately 1 month that worsened with time. Patient was having to use recliner due to excessive shortness of breath with lying flat. He does states that he has bilateral lower extremity edema intermittently. Patient does have a cough that has been present for approximately 1 month as well. Imaging revealed a moderate pleural effusion and Cardiology was consulted. Awaiting echocardiogram results. Much of his symptoms have improved although he still has trouble lying flat on his back and has an intermittent cough. Exam Narrative: GENERAL: Comfortable, no acute distress HENMT: moist mucous membranes EYES: EOM intact b/l NECK: no lymphadenopathy RESPIRATORY: Mild bibasilar wheezing CARDIO: RRR GI: soft, nontender, bowel sounds present SKIN: no rashes EXTREMITIES: +1 pedal edema, no redness or tenderness present Objective Data Vital Signs Vital Signs: Vital Signs - 24 hr 07/17/23 19:03 07/17/23 18:40 07/17/23 19:23 Temperature Pulse Rate 83 83 Respiratory Rate 18 18 Blood Pressure Pulse Oximetry Oxygen Delivery Room Air 07/17/23 19:36 07/17/23 20:12 07/17/23 21:20 Temperature 98.5 F Pulse Rate 83 79 83 Respiratory Rate 15 15 18 Blood Pressure 160/61 H 166/82 H Pulse Oximetry 93 92 Oxygen Delivery 07/17/23 21:35 07/18/23 00:07 07/18/23 00:41 Temperature Pulse Rate 77 84 85 Respiratory Rate 18 14 15 Blood Pressure 156/86 H 146/82 H Pulse Oximetry 94 93 Oxygen D
[2023-07-18] MEDS: PERFLUTREN LIPID MICROSPHERES 1.5 ML VIAL DILUTED TO 10 ML TOTAL VOLUME IV PUSH (15:00)
[2023-07-18] MEDS: guaiFENesin 600 MG/DEXTROMETHORPHAN 30 MG SR TAB 12 HR 1 TAB PO ×2 (15:30→21:19)
--- NOTE | 2023-07-18 15:37 | IVDEFINITY ---
Prior to administration of IV Definity the patient was educated on the risks and benefits of the imaging enhancing agent including potential adverse side effects. The patient verbalized understanding. Allergies were verified. No exclusion criteria were identified and at least one of the following inclusion criteria were met: 1) physician request, 2) patient technically difficult to image (per the [place] [employer] guidelines of two or more segments not discernable within the apical view), or 3) questionable left ventricular function. ?
--- NOTE | 2023-07-18 16:10 | PM.CNPUL ---
Assessment and Plan Assessment and plan (1) Bronchitis: Code(s): J40 - Bronchitis, not specified as acute or chronic Status: Acute Assessment and Plan: This 52-year-old man with cough productive of yellow/green phlegm for 3 weeks despite treatment with 3 antibiotics on outpatient basis presented with increasing shortness of breath and wheezing due to bronchospasm. \ Chest CT showed no evidence of parenchymal infiltrates and small to moderate pericardial effusion for which he was evaluated by Cardiology Services. The patient's history in conjunction with the diagnostic studies and physical findings suggest obstructive airway disease like asthmatic bronchitis related to a recent respiratory infection. The patient has no history of asthma, is a former smoker and is unlikely to have COPD, given his relatively young age Patient has exposure to birds waste at home but chest CT is not consistent with acute hypersensitivity pneumonitis. Plan: Will continue with current regimen of IV steroids and nebulized short-acting bronchodilators on p.r.n. basis. No need to add antibiotics. Asked patient to get rid of parakeets. He will need further workup as an outpatient for possible new onset asthma and also for possible sleep apnea with repeat sleep study. Will follow along with you. (2) Dyspnea: Qualifiers: Dyspnea type: unspecified Qualified Code(s): R06.00 - Dyspnea, unspecified Code(s): R06.00 - Dyspnea, unspecified Status: Acute (3) Morbid obesity due to excess calories: Code(s): E66.01 - Morbid (severe) obesity due to excess calories Status: Acute (4) Pericardial effusion: Code(s): I31.39 - Other pericardial effusion (noninflammatory) Status: Acute History of Present Illness History of Present Illness Consult date: 07/18/23 Chief complaint: Pericardial Effusion Narrative: This 52-year-old man presented with increasing shortness of breath of several days duration cough and wheezing. The patient was in his usual state of health until approximately 3 weeks ago when he started to have cough with yellow green sputum production. He was evaluated in the emergency room and was treated with Augmentin initially for 7 days. The patient continued to have cough with sputum production despite treatment with antibiotic. Subsequently he was evaluated by primary care provider who prescribed doxycycline 100 mg for 14 days. Initial chest x-rays raised question of a right lower lobe infiltrate. Because of no improvement of cough the patient received a 3rd antibiotic azithromycin 250 for 5 days. Over the last several days he started to have increasing shortness of breath along with wheezing and coughing. Cough was worse in supine position. Patient presented to the emergency room where chest CT showed no pulmonary embolism no lung infiltrates. He had a moderate pericardial effusion for which he was evaluated by Cardiology Services. Patient has been started on IV steroids for bronchospasm. Currently he feels better. He continues to have mild cough with sputum production but less than before. He has no fever chills hemoptysis night sweats chest pain or orthopnea. His past medical history is significant for hypertension. He had a sleep study many years ago that raised question of obstructive sleep apnea but patient has not been on any treatment for sleep disordered breathing. Upon questioning he admitted having daytime fatigue due to non refreshing sleep. He smoked 1 pack per day for 15 years but quit 10 years ago. He does office work. He has no exposure to organic agents but has 2 parakeets at home. He never had history of asthma. Review of Systems Review of Systems: Patient reports no weight changes. He has a history of a intermittent acid reflux symptoms. He has no nausea vomiting diarrhea constipation. He has no urinary complaints. He has no joint pain. He noticed some mild swelling in lo
[2023-07-18] MEDS: hydrALAZINE HCL 20 MG/ML VIAL 10 MG IV PUSH (17:17)
[2023-07-18] MEDS: ATORVASTATIN 20 MG TABLET PO (21:19)
[2023-07-18] MEDS: ALBUTEROL SULFATE NEB 2.5 MG/3 ML INH INHALATION (21:35)
[2023-07-18] MEDS: IPRATROPIUM BR 0.02% INH SOLN 0.5 MG/2.5 ML VIAL INHALATION (21:35)
[2023-07-19] VITALS (10 sets, daily range): BP systolic 113–170; BP diastolic 60–76; PULSE 68–96; RESP 16–20; TEMP 36.4–36.6; O2SAT 93–94
[2023-07-19 05:24] LABS: Hemoglobin 14.7 g/dL (14.0-18.0); Immature Granulocyte Absolute 0.06 K/mm3 (0.00-0.031); Immature Granulocyte Percent A 0.6 % (0-0.5); Lymphocytes Absolute Auto 0.99 K/mm3 (0.9-3.2); Lymphocytes Percent Auto 9.7 % (18.3-44.2); Mean Corpuscular HGB Conc 33.4 g/dl (32-36); Mean Corpuscular Hemoglobin 29.6 pg (26-34); Mean Corpuscular Volume 88.7 fl (80-100); Mean Platelet Volume 10.7 fl (7.4-10.4); Monocytes Absolute Auto 0.4 K/mm3 (0.1-0.6); Monocytes Percent Auto 4.3 % (2.6-8.5); Neutrophils Absolute Auto 8.7 K/mm3 (1.3-6.7); Neutrophils Percent Auto 85.4 % (45.5-73.1); Platelet Count Result 224 k/mm3 (150-375); Red Blood Count 4.96 M/mm3 (4.6-6.20); Red Cell Distribution Width 14.3 % (11.5-14.5); White Blood Count 10.2 K/mm3 (4.5-10.0)
[2023-07-19 05:43] LABS: Anion Gap 7 mmol/L (8-16); Blood Urea Nitrogen 15 mg/dL (9-20); Calcium 8.5 mg/dL (8.4-10.2); Carbon Dioxide 26 mmol/L (22-30); Chloride 102 mmol/L (98-107); Estimated CRCL calculation 149 ml/min; Estimated Glomerular Filt Rate > 60; Glucose 151 mg/dL (65-110); Potassium 4.1 mmol/L (3.4-5.0); Sodium 135 mmol/L (137-145)
[2023-07-19] MEDS: methylPREDNISolone SOD SUCC 125 MG VIAL 60 MG IV PUSH ×3 (06:22→21:06)
[2023-07-19] MEDS: guaiFENesin 600 MG/DEXTROMETHORPHAN 30 MG SR TAB 12 HR 1 TAB PO ×2 (08:56→21:06)
[2023-07-19] MEDS: VERAPAMIL HCL 180 MG TABLET ER 360 MG PO (08:56)
[2023-07-19] MEDS: OMEGA 3 POLYUNSAT FATTY ACIDS 1 GM CAP PO (08:56)
[2023-07-19] MEDS: ENOXAPARIN 40 MG/0.4 ML SYRINGE SUB-Q (08:56)
[2023-07-19] MEDS: lisinopriL 20 MG TABLET 40 MG PO (08:56)
--- NOTE | 2023-07-19 10:57 | PM.PNPUL ---
Progress Note: A&P Assessment and Plan (1) Bronchitis: Code(s): J40 - Bronchitis, not specified as acute or chronic Status: Acute Assessment and Plan: This 52-year-old man with cough productive of yellow/green phlegm for 3 weeks despite treatment with 3 antibiotics on outpatient basis presented with increasing shortness of breath and wheezing due to bronchospasm. \ Chest CT showed no evidence of parenchymal infiltrates and small to moderate pericardial effusion for which he was evaluated by Cardiology Services.? The patient's history in conjunction with the diagnostic studies and physical findings suggest obstructive airway disease like asthmatic bronchitis related to a recent respiratory infection.? The patient has no history of asthma, is a former smoker and is unlikely to have COPD, given his relatively young age ? Patient has exposure to birds waste at home but? chest CT is not consistent with? acute hypersensitivity pneumonitis. Respiratory status seems to be responding to IV steroids short-acting bronchodilators. He has not been on antibiotics as he received 3 antibiotics on outpatient basis. Plan:? Will continue with current regimen of IV steroids, DVT prophylaxis, and nebulized short-acting bronchodilators on p.r.n. basis.? Patient is not ready to go home but as yet. He will need further workup as an outpatient for possible underlying obstructive airway disease and sleep disordered breathing. (2) Dyspnea: Qualifiers: Dyspnea type: unspecified Qualified Code(s): R06.00 - Dyspnea, unspecified Code(s): R06.00 - Dyspnea, unspecified Status: Acute (3) Pericardial effusion: Code(s): I31.39 - Other pericardial effusion (noninflammatory) Status: Acute Subjective Date/time seen: 07/19/23 10:57 Interval history: Patient doing little better but still coughing. Also experience shortness of breath and wheezing with ambulation in the room. Remains on room air Review of Systems Review of Systems: All systems reviewed & are unremarkable except as noted in HPI and below (HPI and below) Exam Narrative: GENERAL APPEARANCE: Well developed, well nourished, alert and cooperative, obese and appears to be in no acute distress SKIN: Inspection of the skin reveals no rashes, ulcerations or petechiae. HEENT: Sclerae anicteric and conjunctivae pink and moist. Extraocular movements were intact and pupils were equal, round, and reactive to light. The oral mucosa, hard and soft palate, tongue and posterior pharynx were normal. NECK: Supple. There was no thyroid enlargement, and no tenderness, or masses were felt. CHEST: Normal AP diameter and normal contour without any kyphoscoliosis. LUNGS: Auscultation of the lungs revealed wheezing bilaterally but less than yesterday. CARDIAC: There was a regular rate and rhythm without any murmurs, gallops, rubs. ABDOMEN: Soft and nontender with normal bowel sounds. There was no organomegaly. LYMPH NODES: No lymphadenopathy was appreciated in the neck. EXTREMITIES: No cyanosis, clubbing or edema. NEUROLOGIC: Alert and oriented x 3. Normal affect. Objective Data Vital Signs Vital Signs: Vital Signs - 24 hr 07/18/23 12:00 07/18/23 14:00 07/18/23 16:00 Temperature 36.9 C Pulse Rate 97 91 91 Respiratory Rate 18 Blood Pressure 197/62 H Pulse Oximetry 93 Oxygen Delivery 07/18/23 21:02 07/18/23 21:39 07/18/23 21:40 Temperature 37.2 C Pulse Rate 86 87 Respiratory Rate 16 20 Blood Pressure 168/64 H Pulse Oximetry 93 95 Oxygen Delivery Room Air 07/18/23 21:49 07/19/23 05:48 07/18/23 20:00 Temperature 36.6 C Pulse Rate 90 76 87 Respiratory Rate 20 16 Blood Pressure 170/74 H Pulse Oximetry 94 Oxygen Delivery 07/19/23 00:00 07/19/23 04:00 07/19/23 08:55 Temperature Pulse Rate 72 68 83 Respiratory Rate Blood Pressure 161/69 H Pulse Oximetry 94 Oxygen Delivery 07/19/23 08:00 07/19/23
--- NOTE | 2023-07-19 14:04 | PM.IMPN ---
Progress Note: A&P Assessment and Plan (1) Pericardial effusion: Code(s): I31.39 - Other pericardial effusion (noninflammatory) Status: Acute Assessment and Plan: Patient had moderate pericardial effusion diagnosed incidentally on the CTA of the chest Cardiology was consulted who want to admit the patient in the hospital for further workup Echocardiogram did not show signs tamponade. Continue to monitor (2) Dyspnea: Qualifiers: Dyspnea type: unspecified Qualified Code(s): R06.00 - Dyspnea, unspecified Code(s): R06.00 - Dyspnea, unspecified Status: Acute Assessment and Plan: Likely due to pericardial effusion or airway disease Continue with the DuoNeb breathing treatments in the hospital Patient received Solu-Medrol 125 mg IV x1 dose in the ER Continue with IV Solu-Medrol in the hospital with switched to oral tapering doses once patient responds clinically CTA chest with PE protocol was done as patient had a mildly elevated D-dimer which ruled out pulmonary embolism Symptoms have improved with steroids. BNP within normal limits Pulmonology consulted. Recommending workup for obstructive airway disease and sleep disordered breathing. (3) COPD (chronic obstructive pulmonary disease): Code(s): J44.9 - Chronic obstructive pulmonary disease, unspecified Status: Acute Assessment and Plan: Patient states that he does not have any chronic lung conditions although he is on albuterol inhalers at home Continue IV Solu-Medrol. DuoNebs (4) Bronchitis: Code(s): J40 - Bronchitis, not specified as acute or chronic Status: Acute Assessment and Plan: Continue IV Solu-Medrol. Mucinex q.12hr Patient had received multiple antibiotics for his pneumonia and his labs are stable hence no more antibiotics will be added (5) Hyperlipidemia: Qualifiers: Hyperlipidemia type: unspecified Qualified Code(s): E78.5 - Hyperlipidemia, unspecified Code(s): E78.5 - Hyperlipidemia, unspecified Status: Acute Assessment and Plan: Continue atorvastatin (6) Hypertension: Qualifiers: Hypertension type: primary hypertension Qualified Code(s): I10 - Essential (primary) hypertension Code(s): I10 - Essential (primary) hypertension Status: Acute Assessment and Plan: Continue benazepril Subjective Date/time seen: 07/19/23 14:04 Interval history: Patient doing well and shortness of breath is improving. He is still having some shortness of breath with activity but he is now able to lay flat comfortably and rest. His pedal edema has significantly improved. He still has a cough that is somewhat productive. He is still wheezing on auscultatory exam. Pulmonology recommending outpatient workup for obstructive airway disease. Will continue with IV steroids for now. Exam Narrative: GENERAL: Comfortable, no acute distress HENMT: moist mucous membranes EYES: EOM intact b/l NECK: no lymphadenopathy RESPIRATORY: Diffuse expiratory wheezing CARDIO: RRR GI: soft, nontender, bowel sounds present SKIN: no rashes EXTREMITIES: No edema, no redness or tenderness present Objective Data Vital Signs Vital Signs: Vital Signs - 24 hr 07/18/23 16:00 07/18/23 21:02 07/18/23 21:39 Temperature 98.9 F Pulse Rate 91 86 87 Respiratory Rate 16 20 Blood Pressure 168/64 H Pulse Oximetry 93 Oxygen Delivery 07/18/23 21:40 07/18/23 21:49 07/19/23 05:48 Temperature 97.9 F Pulse Rate 90 76 Respiratory Rate 20 16 Blood Pressure 170/74 H Pulse Oximetry 95 94 Oxygen Delivery Room Air 07/18/23 20:00 07/19/23 00:00 07/19/23 04:00 Temperature Pulse Rate 87 72 68 Respiratory Rate Blood Pressure Pulse Oximetry Oxygen Delivery 07/19/23 08:55 07/19/23 08:00 07/19/23 09:00 Temperature Pulse Rate 83 73 Respir
[2023-07-19] MEDS: ATORVASTATIN 20 MG TABLET PO (21:06)
[2023-07-20] VITALS (9 sets, daily range): BP systolic 135–165; BP diastolic 65–84; PULSE 62–88; RESP 16–20; TEMP 36.8–36.9; O2SAT 91–97
[2023-07-20] MEDS: methylPREDNISolone SOD SUCC 125 MG VIAL 60 MG IV PUSH ×2 (05:48→17:57)
[2023-07-20 06:49] LABS: Hematocrit 45.9 % (42.0-52.0); Hemoglobin 15.3 g/dL (14.0-18.0); Immature Granulocyte Absolute 0.07 K/mm3 (0.00-0.031); Immature Granulocyte Percent A 0.6 % (0-0.5); Lymphocytes Absolute Auto 1.21 K/mm3 (0.9-3.2); Lymphocytes Percent Auto 11.2 % (18.3-44.2); Mean Corpuscular HGB Conc 33.3 g/dl (32-36); Mean Corpuscular Hemoglobin 29.5 pg (26-34); Mean Corpuscular Volume 88.4 fl (80-100); Mean Platelet Volume 10.8 fl (7.4-10.4); Monocytes Absolute Auto 0.5 K/mm3 (0.1-0.6); Neutrophils Percent Auto 83.2 % (45.5-73.1); Platelet Count Result 201 k/mm3 (150-375); Red Blood Count 5.19 M/mm3 (4.6-6.20); Red Cell Distribution Width 14.1 % (11.5-14.5); White Blood Count 10.8 K/mm3 (4.5-10.0)
[2023-07-20 06:54] LABS: Anion Gap 7 mmol/L (8-16); Blood Urea Nitrogen 17 mg/dL (9-20); Calcium 8.2 mg/dL (8.4-10.2); Carbon Dioxide 26 mmol/L (22-30); Chloride 103 mmol/L (98-107); Estimated CRCL calculation 149 ml/min; Estimated Glomerular Filt Rate > 60; Glucose 140 mg/dL (65-110); Potassium 4.4 mmol/L (3.4-5.0); Sodium 136 mmol/L (137-145)
[2023-07-20] MEDS: guaiFENesin 600 MG/DEXTROMETHORPHAN 30 MG SR TAB 12 HR 1 TAB PO ×2 (09:35→20:23)
[2023-07-20] MEDS: VERAPAMIL HCL 180 MG TABLET ER 360 MG PO (09:35)
[2023-07-20] MEDS: ENOXAPARIN 40 MG/0.4 ML SYRINGE SUB-Q (09:35)
[2023-07-20] MEDS: OMEGA 3 POLYUNSAT FATTY ACIDS 1 GM CAP PO (09:35)
[2023-07-20] MEDS: lisinopriL 20 MG TABLET 40 MG PO (09:35)
--- NOTE | 2023-07-20 10:14 | PM.PNCARD ---
Progress Note: A&P Assessment and Plan (1) Pericardial effusion: Code(s): I31.39 - Other pericardial effusion (noninflammatory) Status: Acute Plan 52-year-old man with a asymptomatic small to moderate size circumferential pericardial effusion in the setting of what appears to be a viral respiratory illness. This certainly could be the etiology of this effusion. It is not causing any hemodynamic embarrassment at this point the plan is to follow this longitudinally. From a cardiac perspective he can be discharged at any time. I will see that the office contact him and arranges for follow-up with Dr. Baker in a timely fashion. Andrea Wisdom MD [facility] Subjective Date/time seen: Date of service: 07/20/23 10:14 Interval history: Follow-up visit in this 52-year-old man with: Clinical diagnosis of bronchitis with an upper respiratory infection and has been found incidentally to have a pericardial effusion. He is feeling well today much better than when he came in the hospital is hoping to be discharged relatively soon. Discussed the nature of this pericardial effusion with the patient in the room today in detail. Exam Const: General: comfortable and no acute distress Other: Obese white male large gentleman no apparent distress HENMT: Mouth: Yes moist mucous membranes Eyes: Sclera: sclerae normal Neck: Neck: supple and no JVD Resp: Effort & Inspection: normal respiratory effort Auscultation: clear to auscultation bilaterally Cardio: Rate: regular rate Rhythm: regular rhythm Other: PMI is not palpable because of his size there is no pericardial rub GI: GI Palp: Yes Soft to palpation Auscultation: normal bowel sounds Skin: General skin exam: normal color Neuro: Other: Alert and oriented x3 Objective Data Vital Signs Vital Signs: Vital Signs - 24 hr 07/19/23 12:00 07/19/23 14:00 07/19/23 16:00 Temperature 36.4 C Pulse Rate 96 70 72 Respiratory Rate 18 Blood Pressure 113/60 Pulse Oximetry 93 Oxygen Delivery 07/19/23 19:43 07/19/23 20:00 07/19/23 20:00 Temperature 36.6 C Pulse Rate 80 76 80 Respiratory Rate 20 20 Blood Pressure 160/76 H Pulse Oximetry 93 93 Oxygen Delivery Room Air 07/20/23 00:00 07/20/23 05:00 07/20/23 05:00 Temperature 36.8 C Pulse Rate 62 72 Respiratory Rate 20 Blood Pressure 165/84 H Pulse Oximetry 95 91 Oxygen Delivery Room Air 07/20/23 09:33 Temperature Pulse Rate 84 Respiratory Rate 16 Blood Pressure 147/71 H Pulse Oximetry 97 Oxygen Delivery Intake/Output Intake/Output: Intake & Output 07/17/23 07/18/23 07/19/23 07/20/23 23:59 23:59 23:59 23:59 Intake Total 1760 1390 610 Balance 1760 1390 610 Meds/Results Medications: Active Medications Generic Name Dose Route Start Last Admin Trade Name Freq PRN Reason Stop Dose Admin Albuterol 2.5 mg 07/18/23 00:33 07/18/23 21:35 Albuterol Sulfate Neb 2.5 Mg/3 Ml Inh INHALATION 2.5 mg Q4HRT PRN Administration Shortness Of Breath Or Wheezing Atorvastatin Calcium 20 mg 07/18/23 21:00 07/19/23 21:06 Atorvastatin 20 Mg Tablet PO 20 mg QHS MADELIN Administration Enoxaparin Sodium 40 mg 07/19/23 09:00 07/20/23 09:35 Enoxaparin 40 Mg/0.4 Ml Syringe SUB-Q 40 mg DAILY MADELIN Administration Fish Oil 1 gm 07/18/23 09:00 07/20/23 09:35 Earp 3 Polyunsat Fatty Acids 1 Gm Cap PO 1 gm DAILY MADELIN Administration Guaifenesin/Dextromethorphan 1 tab 07/18/23 13:25 07/20/23 09:35 Guaifenesin 600 Mg/Dextromethorphan 30 Mg Sr Tab 12 Hr PO 1 tab Q12HR MADELIN Administration Hydralazine HCl 10 mg 07/18/23 16:54 07/18/23 17:17 Hydralazine Hcl 20 Mg/Ml Vial IV PUSH 10 mg Q8H PRN Administration Blood Pressure - High Ipratropium [place] 0.5 mg 07/18/23 00:33 07/18/23 21:35 Ipratropium Br 0.02% Inh Soln 0.5 Mg/2.5 Ml Vial INHALATION 0.5 mg Q6HRT PRN Administration Shortness
--- NOTE | 2023-07-20 11:47 | P.PNIM_ITS ---
Progress Note: A&P Assessment and Plan (1) Dyspnea: Qualifiers: Dyspnea type: unspecified Qualified Code(s): R06.00 - Dyspnea, unspecified Code(s): R06.00 - Dyspnea, unspecified Status: Acute Assessment and Plan: * Likely due to pericardial effusion or airway disease. * Continue with the DuoNeb breathing treatments in the hospital. * CTA chest with PE protocol was done as patient had a mildly elevated D-dimer which ruled out pulmonary embolism. * Symptoms have improved with steroids. * BNP within normal limits. * ApneaLink ordered and did not reveal suspicion for MAYKEL. * Pulmonology consulted. Recommending workup for obstructive airway disease and sleep disordered breathing. * Decelerating IV Solu-Medrol to q.12 hours. Patient clear improving. Will eventually transition to p.o. steroids. (2) Pericardial effusion: Code(s): I31.39 - Other pericardial effusion (noninflammatory) Status: Acute Assessment and Plan: * Patient had moderate pericardial effusion diagnosed incidentally on the CTA of the chest * Cardiology was consulted who want to admit the patient in the hospital for further workup * Echocardiogram did not show signs tamponade. * Continue to monitor * Cardiology has released patient from their service to follow-up in the office. (3) COPD (chronic obstructive pulmonary disease): Code(s): J44.9 - Chronic obstructive pulmonary disease, unspecified Status: Acute Assessment and Plan: * Patient states that he does not have any chronic lung conditions although he is on albuterol inhalers at home * Continue IV Solu-Medrol. * DuoNebs (4) Bronchitis: Code(s): J40 - Bronchitis, not specified as acute or chronic Status: Acute Assessment and Plan: * Continue IV Solu-Medrol. * Mucinex q.12hr * Patient had received multiple antibiotics for his pneumonia and his labs are stable hence no more antibiotics will be added (5) Hyperlipidemia: Qualifiers: Hyperlipidemia type: unspecified Qualified Code(s): E78.5 - Hyperlipidemia, unspecified Code(s): E78.5 - Hyperlipidemia, unspecified Status: Acute Assessment and Plan: Continue atorvastatin (6) Hypertension: Qualifiers: Hypertension type: primary hypertension Qualified Code(s): I10 - Essential (primary) hypertension Code(s): I10 - Essential (primary) hypertension Status: Acute Assessment and Plan: Continue benazepril Subjective Date/time seen: 07/20/23 11:47 Interval history: Patient doing well today. He states that his shortness of breath with activities improving. He has been trying to walk around his room and his breathing has improved each day. He was able to lay down flat last night and sleep. He no longer has lower extremity swelling. Cough is also improved. He is still wheezing on exam. Awaiting further recommendations from pulmonology at this time. Exam Narrative: GENERAL: Comfortable, no acute distress HENMT: moist mucous membranes EYES: EOM intact b/l NECK: no lymphadenopathy RESPIRATORY: Right-sided expiratory wheezing CARDIO: RRR GI: soft, nontender, bowel sounds present SKIN: no rashes EXTREMITIES: No edema, no redness or tenderness present Objective Data Vital Signs Vital Signs: Vital Signs - 24 hr 07/19/23
--- NOTE | 2023-07-20 11:47 | PM.IMPN ---
Progress Note: A&P Assessment and Plan (1) Dyspnea: Qualifiers: Dyspnea type: unspecified Qualified Code(s): R06.00 - Dyspnea, unspecified Code(s): R06.00 - Dyspnea, unspecified Status: Acute Assessment and Plan: Likely due to pericardial effusion or airway disease. Continue with the DuoNeb breathing treatments in the hospital. CTA chest with PE protocol was done as patient had a mildly elevated D-dimer which ruled out pulmonary embolism. Symptoms have improved with steroids. BNP within normal limits. ApneaLink ordered and did not reveal suspicion for MAYKEL. Pulmonology consulted. Recommending workup for obstructive airway disease and sleep disordered breathing. Decelerating IV Solu-Medrol to q.12 hours. Patient clear improving. Will eventually transition to p.o. steroids. (2) Pericardial effusion: Code(s): I31.39 - Other pericardial effusion (noninflammatory) Status: Acute Assessment and Plan: Patient had moderate pericardial effusion diagnosed incidentally on the CTA of the chest Cardiology was consulted who want to admit the patient in the hospital for further workup Echocardiogram did not show signs tamponade. Continue to monitor Cardiology has released patient from their service to follow-up in the office. (3) COPD (chronic obstructive pulmonary disease): Code(s): J44.9 - Chronic obstructive pulmonary disease, unspecified Status: Acute Assessment and Plan: Patient states that he does not have any chronic lung conditions although he is on albuterol inhalers at home Continue IV Solu-Medrol. DuoNebs (4) Bronchitis: Code(s): J40 - Bronchitis, not specified as acute or chronic Status: Acute Assessment and Plan: Continue IV Solu-Medrol. Mucinex q.12hr Patient had received multiple antibiotics for his pneumonia and his labs are stable hence no more antibiotics will be added (5) Hyperlipidemia: Qualifiers: Hyperlipidemia type: unspecified Qualified Code(s): E78.5 - Hyperlipidemia, unspecified Code(s): E78.5 - Hyperlipidemia, unspecified Status: Acute Assessment and Plan: Continue atorvastatin (6) Hypertension: Qualifiers: Hypertension type: primary hypertension Qualified Code(s): I10 - Essential (primary) hypertension Code(s): I10 - Essential (primary) hypertension Status: Acute Assessment and Plan: Continue benazepril Subjective Date/time seen: 09/02/23 11:47 Interval history: Patient doing well today. He states that his shortness of breath with activities improving. He has been trying to walk around his room and his breathing has improved each day. He was able to lay down flat last night and sleep. He no longer has lower extremity swelling. Cough is also improved. He is still wheezing on exam. Awaiting further recommendations from pulmonology at this time. Exam Narrative: GENERAL: Comfortable, no acute distress HENMT: moist mucous membranes EYES: EOM intact b/l NECK: no lymphadenopathy RESPIRATORY: Right-sided expiratory wheezing CARDIO: RRR GI: soft, nontender, bowel sounds present SKIN: no rashes EXTREMITIES: No edema, no redness or tenderness present Objective Data Vital Signs Vital Signs: Vital Signs - 24 hr 07/19/23 12:00 07/19/23 14:00 07/19/23 16:00 Temperature 97.6 F Pulse Rate 96 70 72 Respiratory Rate 18 Blood Pressure 113/60 Pulse Oximetry 93 Oxygen Delivery 07/19/23 19:43 07/19/23 20:00 07/19/23 20:00 Temperature 97.8 F Pulse Rate 80 76 80 Respiratory Rate 20 20 Blood Pressure 160/76 H Pulse Oximetry 93 93 Oxygen Delivery Room Air 07/20/23 00:00 07/20/23 05:00 07/20/23 05:00 Temperature 98.2 F Pulse Rate 62 72 Respiratory Rate 20 Blood Pressure 165/84 H Pulse Oximetry 95 91 Oxygen Delivery Room Air 07/20/23 09:
--- NOTE | 2023-07-20 17:00 | PM.PNPUL ---
Progress Note: A&P Assessment and Plan (1) Bronchitis: Code(s): J40 - Bronchitis, not specified as acute or chronic Status: Acute Assessment and Plan: This 52-year-old man with cough productive of yellow/green phlegm for 3 weeks despite treatment with 3 antibiotics on outpatient basis presented with increasing shortness of breath and wheezing due to bronchospasm. Chest CT showed no evidence of parenchymal infiltrates and small to moderate pericardial effusion for which he was evaluated by Cardiology Services.? The patient's history in conjunction with the diagnostic studies and physical findings suggest obstructive airway disease like asthmatic bronchitis related to a recent respiratory infection.? The patient has no history of asthma, is a former smoker and is unlikely to have COPD, given his relatively young age ? Patient has exposure to birds waste at home but chest CT is not consistent with?acute hypersensitivity pneumonitis. Respiratory status seems to be responding to IV steroids and short-acting bronchodilators. He has not been on antibiotics as he received 3 antibiotics on outpatient basis. He will continue with current regimen of IV steroids, DVT prophylaxis, and nebulized short-acting bronchodilators on p.r.n. basis; monitor to determine when he is ready to go home and have further workup as an outpatient for possible underlying obstructive airway disease and sleep disordered breathing. (2) Dyspnea: Qualifiers: Dyspnea type: unspecified Qualified Code(s): R06.00 - Dyspnea, unspecified Code(s): R06.00 - Dyspnea, unspecified Status: Acute (3) Pericardial effusion: Code(s): I31.39 - Other pericardial effusion (noninflammatory) Status: Acute Plan This is his third encounter with the medical system since Jun 23, was in ED twice with improvement then worsening after each acute episode. He says that he never went home on steroids, got acute treatment. He was admitted SaturdayJul 17; wants to make sure that he is stable before leaving the hospital. He does not have a normal exam today, has crackle in his bases and wheezing bilaterally. Subjective Date/time seen: 07/20/23 17:00 Interval history: Carlos Perez is a 52 year-old man hospital 3 for acute bronchitis. He feels better, still coughing, has less shortness of breath and wheezing with ambulation in the room. Remains on room air. His and son are present. 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 Review of Systems Review of Systems: All systems reviewed & are unremarkable except as noted in HPI and below (HPI and below) Exam Narrative: GENERAL APPEARANCE: Well developed, well nourished, alert and cooperative, obese and appears to be in no acute distress HEENT: Sclerae anicteric and conjunctivae pink and moist. Pupils equal and reactive to light. CHEST: Normal AP diameter and normal contour without any kyphoscoliosis. Auscultation of the lungs revealed basilar crackles and little expiratory wheezing. CARDIAC: There was a regular rate and rhythm without any murmurs, gallops, rubs. LYMPH NODES: No lymphadenopathy was appreciated in the neck. EXTREMITIES: No cyanosis, clubbing or edema. NEUROLOGIC: Alert and oriented x 3. Normal affect. Objective Data Vital Signs Vital Signs: Vital Signs - 24 hr 07/19/23 19:43 07/19/23 20:00 07/19/23 20:00 Temperature 36.6 C Pulse Rate 80 76 80 Respiratory Rate 20 20 Blood Pressure 160/76 H Pulse Oximetry 93 93 Oxygen Delivery Room Air 07/20/23 00:00 07/20/23 05:00 07/20/23 05:00 Temperature 36.8 C Pulse Rate 62 72 Respiratory Rate 20 Blood Pressure 165/84 H Pulse Oximetry 95 91 Oxygen Delivery Room Air 07/20/23 09:33 07/20/23 08:00 07/20/23 09:40 Temperature Pulse Rate 84 66 Respiratory Rate 16 Blood Pressure 147/71 H Pulse Oximetry 97 Ox
[2023-07-20] MEDS: ATORVASTATIN 20 MG TABLET PO (20:23)
[2023-07-21] VITALS (11 sets, daily range): BP systolic 125–153; BP diastolic 56–73; PULSE 59–91; RESP 16–20; TEMP 36.1–36.7; O2SAT 92–99
[2023-07-21] MEDS: methylPREDNISolone SOD SUCC 125 MG VIAL 60 MG IV PUSH ×2 (06:07→17:27)
[2023-07-21 06:29] LABS: Basophils Percent Auto 0.1 % (0.2-1.2); Hematocrit 46.4 % (42.0-52.0); Hemoglobin 15.2 g/dL (14.0-18.0); Lymphocytes Absolute Auto 1.49 K/mm3 (0.9-3.2); Lymphocytes Percent Auto 14.4 % (18.3-44.2); Mean Corpuscular HGB Conc 32.8 g/dl (32-36); Mean Corpuscular Volume 88.4 fl (80-100); Monocytes Absolute Auto 0.7 K/mm3 (0.1-0.6); Monocytes Percent Auto 7.1 % (2.6-8.5); Neutrophils Percent Auto 77.4 % (45.5-73.1); Platelet Count Result 196 k/mm3 (150-375); Red Blood Count 5.25 M/mm3 (4.6-6.20); Red Cell Distribution Width 13.7 % (11.5-14.5); White Blood Count 10.4 K/mm3 (4.5-10.0)
[2023-07-21 06:41] LABS: Anion Gap 3 mmol/L (8-16); Blood Urea Nitrogen 21 mg/dL (9-20); Carbon Dioxide 29 mmol/L (22-30); Chloride 102 mmol/L (98-107); Potassium 4.4 mmol/L (3.4-5.0); Sodium 134 mmol/L (137-145)
[2023-07-21 06:42] LABS: Calcium 7.9 mg/dL (8.4-10.2); Estimated CRCL calculation 149 ml/min; Estimated Glomerular Filt Rate > 60; Glucose 120 mg/dL (65-110)
[2023-07-21] MEDS: OMEGA 3 POLYUNSAT FATTY ACIDS 1 GM CAP PO (09:36)
[2023-07-21] MEDS: guaiFENesin 600 MG/DEXTROMETHORPHAN 30 MG SR TAB 12 HR 1 TAB PO ×2 (09:36→20:37)
[2023-07-21] MEDS: ENOXAPARIN 40 MG/0.4 ML SYRINGE SUB-Q (09:36)
[2023-07-21] MEDS: VERAPAMIL HCL 180 MG TABLET ER 360 MG PO (09:36)
[2023-07-21] MEDS: lisinopriL 20 MG TABLET 40 MG PO (09:36)
--- NOTE | 2023-07-21 14:10 | P.PNIM_ITS ---
Progress Note: A&P Assessment and Plan (1) Dyspnea: Qualifiers: Dyspnea type: unspecified Qualified Code(s): R06.00 - Dyspnea, unspecified Code(s): R06.00 - Dyspnea, unspecified Status: Acute Assessment and Plan: * Likely due to pericardial effusion or airway disease. * Continue with the DuoNeb breathing treatments in the hospital. * CTA chest with PE protocol was done as patient had a mildly elevated D-dimer which ruled out pulmonary embolism. * Symptoms have improved with steroids. * BNP within normal limits. * ApneaLink ordered and did not reveal suspicion for MAYKEL. * Pulmonology consulted. Recommending workup for obstructive airway disease and sleep disordered breathing. * Decelerating IV Solu-Medrol to q.12 hours. Patient improving. Will eventually transition to p.o. steroids. * Awaiting clearance from pulmonology for discharge. (2) Pericardial effusion: Code(s): I31.39 - Other pericardial effusion (noninflammatory) Status: Acute Assessment and Plan: * Patient had moderate pericardial effusion diagnosed incidentally on the CTA of the chest * Cardiology was consulted who want to admit the patient in the hospital for further workup * Echocardiogram did not show signs tamponade. * Continue to monitor * Cardiology has released patient from their service to follow-up in the office. (3) COPD (chronic obstructive pulmonary disease): Code(s): J44.9 - Chronic obstructive pulmonary disease, unspecified Status: Acute Assessment and Plan: * Patient states that he does not have any chronic lung conditions although he is on albuterol inhalers at home * Continue IV Solu-Medrol. * DuoNebs (4) Bronchitis: Code(s): J40 - Bronchitis, not specified as acute or chronic Status: Acute Assessment and Plan: * Continue IV Solu-Medrol. * Mucinex q.12hr * Patient had received multiple antibiotics for his pneumonia and his labs are stable hence no more antibiotics will be added (5) Hyperlipidemia: Qualifiers: Hyperlipidemia type: unspecified Qualified Code(s): E78.5 - Hyperlipidemia, unspecified Code(s): E78.5 - Hyperlipidemia, unspecified Status: Acute Assessment and Plan: Continue atorvastatin (6) Hypertension: Qualifiers: Hypertension type: primary hypertension Qualified Code(s): I10 - Essential (primary) hypertension Code(s): I10 - Essential (primary) hypertension Status: Acute Assessment and Plan: Continue benazepril Subjective Date/time seen: 07/21/23 14:10 Interval history: Patient doing well today. He states that while walking about the room he is not having much shortness of breath which is a huge improvement. Feet are no longer edematous. He has a very mild cough that is much improved. Able to lay flat on his back. Scant wheezing on auscultation. Awaiting further instruction for pulmonology on discharge. Medically from a hospitalist standpoint can discharge once cleared by pulmonology. Exam Narrative: GENERAL: Comfortable, no acute distress HENMT: moist mucous membranes EYES: EOM intact b/l NECK: no lymphadenopathy RESPIRATORY: Scant expiratory wheezing on left lower lung zone otherwise clear CARDIO: RRR GI: soft, nontender, bowel sounds present SKIN: no rashes EXTREMITIES: No edema, no redness or tenderness present Objective Data Vital
--- NOTE | 2023-07-21 14:10 | PM.IMPN ---
Progress Note: A&P Assessment and Plan (1) Dyspnea: Qualifiers: Dyspnea type: unspecified Qualified Code(s): R06.00 - Dyspnea, unspecified Code(s): R06.00 - Dyspnea, unspecified Status: Acute Assessment and Plan: Likely due to pericardial effusion or airway disease. Continue with the DuoNeb breathing treatments in the hospital. CTA chest with PE protocol was done as patient had a mildly elevated D-dimer which ruled out pulmonary embolism. Symptoms have improved with steroids. BNP within normal limits. ApneaLink ordered and did not reveal suspicion for MAYKEL. Pulmonology consulted. Recommending workup for obstructive airway disease and sleep disordered breathing. Decelerating IV Solu-Medrol to q.12 hours. Patient improving. Will eventually transition to p.o. steroids. Awaiting clearance from pulmonology for discharge. (2) Pericardial effusion: Code(s): I31.39 - Other pericardial effusion (noninflammatory) Status: Acute Assessment and Plan: Patient had moderate pericardial effusion diagnosed incidentally on the CTA of the chest Cardiology was consulted who want to admit the patient in the hospital for further workup Echocardiogram did not show signs tamponade. Continue to monitor Cardiology has released patient from their service to follow-up in the office. (3) COPD (chronic obstructive pulmonary disease): Code(s): J44.9 - Chronic obstructive pulmonary disease, unspecified Status: Acute Assessment and Plan: Patient states that he does not have any chronic lung conditions although he is on albuterol inhalers at home Continue IV Solu-Medrol. DuoNebs (4) Bronchitis: Code(s): J40 - Bronchitis, not specified as acute or chronic Status: Acute Assessment and Plan: Continue IV Solu-Medrol. Mucinex q.12hr Patient had received multiple antibiotics for his pneumonia and his labs are stable hence no more antibiotics will be added (5) Hyperlipidemia: Qualifiers: Hyperlipidemia type: unspecified Qualified Code(s): E78.5 - Hyperlipidemia, unspecified Code(s): E78.5 - Hyperlipidemia, unspecified Status: Acute Assessment and Plan: Continue atorvastatin (6) Hypertension: Qualifiers: Hypertension type: primary hypertension Qualified Code(s): I10 - Essential (primary) hypertension Code(s): I10 - Essential (primary) hypertension Status: Acute Assessment and Plan: Continue benazepril Subjective Date/time seen: 07/21/23 14:10 Interval history: Patient doing well today. He states that while walking about the room he is not having much shortness of breath which is a huge improvement. Feet are no longer edematous. He has a very mild cough that is much improved. Able to lay flat on his back. Scant wheezing on auscultation. Awaiting further instruction for pulmonology on discharge. Medically from a hospitalist standpoint can discharge once cleared by pulmonology. Exam Narrative: GENERAL: Comfortable, no acute distress HENMT: moist mucous membranes EYES: EOM intact b/l NECK: no lymphadenopathy RESPIRATORY: Scant expiratory wheezing on left lower lung zone otherwise clear CARDIO: RRR GI: soft, nontender, bowel sounds present SKIN: no rashes EXTREMITIES: No edema, no redness or tenderness present Objective Data Vital Signs Vital Signs: Vital Signs - 24 hr 07/20/23 16:00 07/20/23 19:16 07/20/23 20:00 Temperature 98.2 F Pulse Rate 68 75 75 Respiratory Rate 18 18 Blood Pressure 140/73 Pulse Oximetry 92 92 Oxygen Delivery Room Air 07/20/23 20:00 07/21/23 00:00 07/21/23 04:00 Temperature Pulse Rate 66 66 61 Respiratory Rate Blood Pressure Pulse Oximetry Oxygen Delivery 07/21/23 04:43 07/21/23 09:34 07/21/23 08:00 Temperature 98.1 F Pulse Rate 59 L 74 59 L Respiratory
--- NOTE | 2023-07-21 17:32 | PM.PNPUL ---
Progress Note: A&P Assessment and Plan (1) Bronchitis: Code(s): J40 - Bronchitis, not specified as acute or chronic Status: Acute Assessment and Plan: This 52-year-old man with cough productive of yellow/green phlegm for 3 weeks despite treatment with 3 antibiotics on outpatient basis presented with increasing shortness of breath and wheezing due to bronchospasm. Chest CT showed no evidence of parenchymal infiltrates and small to moderate pericardial effusion for which he was evaluated by Cardiology Services.? The patient's history in conjunction with the diagnostic studies and physical findings suggest obstructive airway disease like asthmatic bronchitis related to a recent respiratory infection.? The patient has no history of asthma, is a former smoker 1 ppd quit 10 years ago, unlikely to have COPD, given his relatively young age. ? Patient has exposure to birds at home but chest CT is not consistent with?acute hypersensitivity pneumonitis. Respiratory status seems to be responding to IV steroids and short-acting bronchodilators. We will change to oral steroids, add inhaled ICS-LABA which he will take at home until seen in the pulmonary office in follow up. Can continue nebulized short-acting bronchodilators on p.r.n. basis; he will be discharged in am. Will have PFTs in 4-8 weeks after discharge to work up possible underlying obstructive airway disease and sleep disordered breathing. (2) Dyspnea: Qualifiers: Dyspnea type: unspecified Qualified Code(s): R06.00 - Dyspnea, unspecified Code(s): R06.00 - Dyspnea, unspecified Status: Acute Assessment and Plan: Stable, improved. (3) Pericardial effusion: Code(s): I31.39 - Other pericardial effusion (noninflammatory) Status: Acute Assessment and Plan: Stable, cardiology is not seeing him any longer. Plan This is his third encounter with the medical system since Jun 23, was in ED twice with improvement then worsening after each acute episode. He says that he never went home on steroids, only got acute treatment. He was admitted SaturdayJul 17; now he is much more stable. His exam is now normal, no crackles or wheezing. plan: Stop IV solumedrol 60 mg after dose today; change to oral prednisone 50 mg in the am, discharge on oral taper. Start Advair 115/21 TWO puffs BID starting tonight; can go home on this inhaler tomorrow. Ask his 2 parakeets to live somewhere else. He asked about supplements. A multivitamin is a good idea for everyone. Follow up in pulmonary office in 1-2 weeks. I will check a thyroid panel and NATALY due to his pericardial effusion. He has not had TSH since 2010 (that I can locate in system). Hypothyroidism and collagen vascular disease can be associated with pericardial effusions. Subjective Date/time seen: 07/21/23 17:32 Interval history: Carlos Perez is a 52 year-old man hospital day #4 for acute bronchitis. He feels better, almost no coughing, much less short of breath and no wheezing. Remains on room air. His and son are present. He feels that he is ready to go home. He had an ApneaLink last night; AHI was 2.1 however he spent 64 minutes below 88%, licha saturation 85%; this is significant and needs further evaluation after discharge. Home sleep tests are not perfect. 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 We talked about getting the birds out of the house at least for a month or so to see if he improves. Review of Systems Review of Systems: Sleeping well. He is not waking at night short of breath. All systems reviewed & are unremarkable except as noted in HPI and below ROS unobtainable: No unobtainable due
[2023-07-21] MEDS: FLUTICASONE/SALMETEROL 115-21 MCG INHALER 1 PUFF 2 PUFF INHALATION (19:37)
[2023-07-21] MEDS: ATORVASTATIN 20 MG TABLET PO (20:37)
[2023-07-22] VITALS: PULSE 63
[2023-07-22 04:00] VITALS: PULSE 61
[2023-07-22 05:12] VITALS: BP 153/75; PULSE 65; RESP 18; TEMP 36.4; O2SAT 96
[2023-07-22 05:52] LABS: Basophils Percent Auto 0.2 % (0.2-1.2); Hematocrit 47.1 % (42.0-52.0); Hemoglobin 15.8 g/dL (14.0-18.0); Immature Granulocyte Absolute 0.11 K/mm3 (0.00-0.031); Lymphocytes Percent Auto 13.8 % (18.3-44.2); Mean Corpuscular HGB Conc 33.5 g/dl (32-36); Mean Corpuscular Hemoglobin 29.4 pg (26-34); Mean Corpuscular Volume 87.5 fl (80-100); Mean Platelet Volume 11.1 fl (7.4-10.4); Monocytes Absolute Auto 0.8 K/mm3 (0.1-0.6); Monocytes Percent Auto 6.9 % (2.6-8.5); Neutrophils Absolute Auto 8.5 K/mm3 (1.3-6.7); Neutrophils Percent Auto 78.1 % (45.5-73.1); Platelet Count Result 185 k/mm3 (150-375); Red Blood Count 5.38 M/mm3 (4.6-6.20); Red Cell Distribution Width 13.7 % (11.5-14.5); White Blood Count 10.9 K/mm3 (4.5-10.0)
[2023-07-22 05:59] LABS: Anion Gap 7 mmol/L (8-16); Blood Urea Nitrogen 20 mg/dL (9-20); Calcium 7.8 mg/dL (8.4-10.2); Carbon Dioxide 25 mmol/L (22-30); Chloride 101 mmol/L (98-107); Estimated CRCL calculation 134 ml/min; Estimated Glomerular Filt Rate > 60; Glucose 128 mg/dL (65-110); Potassium 4.1 mmol/L (3.4-5.0); Sodium 133 mmol/L (137-145)
[2023-07-22 06:45] LABS: Thyroid Stimulating Hormone Reflex 0.989 uIU/mL (0.465-4.68)
[2023-07-22 08:00] VITALS: PULSE 58
[2023-07-22] MEDS: FLUTICASONE/SALMETEROL 115-21 MCG INHALER 1 PUFF 2 PUFF INHALATION (08:11)
[2023-07-22 08:13] VITALS: PULSE 87; RESP 16
[2023-07-22] MEDS: ENOXAPARIN 40 MG/0.4 ML SYRINGE SUB-Q (08:19)
[2023-07-22] MEDS: VERAPAMIL HCL 180 MG TABLET ER 360 MG PO (08:20)
[2023-07-22] MEDS: predniSONE 40 MG, predniSONE 10 MG 50 MG PO (08:20)
[2023-07-22] MEDS: OMEGA 3 POLYUNSAT FATTY ACIDS 1 GM CAP PO (08:20)
[2023-07-22] MEDS: guaiFENesin 600 MG/DEXTROMETHORPHAN 30 MG SR TAB 12 HR 1 TAB PO (08:20)
[2023-07-22] MEDS: lisinopriL 20 MG TABLET 40 MG PO (08:20)
[2023-07-22 08:40] LABS: Free T4 Free Thyroxine 1.17 ng/mL (0.78-2.19)
--- NOTE | 2023-07-22 11:18 | PM.DS ---
DS: Admitting Diagnosis Discharge Date 07/22/23 Admitting Diagnosis bronchitis DS: Discharge Diagnosis Discharge Diagnosis (1) Dyspnea: Qualifiers: Dyspnea type: unspecified Qualified Code(s): R06.00 - Dyspnea, unspecified Code(s): R06.00 - Dyspnea, unspecified Status: Acute (2) Pericardial effusion: Code(s): I31.39 - Other pericardial effusion (noninflammatory) Status: Acute (3) COPD (chronic obstructive pulmonary disease): Code(s): J44.9 - Chronic obstructive pulmonary disease, unspecified Status: Acute (4) Bronchitis: Code(s): J40 - Bronchitis, not specified as acute or chronic Status: Acute (5) Hyperlipidemia: Qualifiers: Hyperlipidemia type: unspecified Qualified Code(s): E78.5 - Hyperlipidemia, unspecified Code(s): E78.5 - Hyperlipidemia, unspecified Status: Acute (6) Hypertension: Qualifiers: Hypertension type: primary hypertension Qualified Code(s): I10 - Essential (primary) hypertension Code(s): I10 - Essential (primary) hypertension Status: Acute DS: Summary Hospital Course Hospital Course: This is a 52-year-old male with a past medical history of hypertension that presented to the ED due to worsening shortness of breath. In the past month patient has been given antibiotics for pneumonia and his symptoms continue to worsen. Patient has finished all of his antibiotics as prescribed although his symptoms were not improved. Patient's O2 saturations were in the 90s and he did not require any oxygen supplementation. CT of the chest showed mild pericardial effusion and Cardiology was consulted. Echocardiogram did not reveal any signs of tamponade. He was started on IV steroids due to profuse wheezing. Pulmonology consulted. Patient did not have any history of asthma or COPD although he does have a smoking history. He was started on DuoNebs. Patient does have parakeets at home and has so for approximately 5 years. It was advised that patient refill his birds. ApneaLink performed and did not rise suspicion for sleep apnea although it is still keating that patient follow-up as an outpatient for a sleep study. Patient breathing improved with IV steroids and DuoNebs. He was started on Advair. With approximately 4 days of steroid therapy patient's shortness of breath resolved and he was sent home on a 2 week prednisone taper as well as inhalers. His labs and vital signs are stable and he is medically clear for discharge at this time. Time Spent with Patient Time attestation: Total time spent providing and/or coordinating discharge services: DS: Data Data Completed and Pending Labs on day of discharge: Labs from last 24 hours 07/22/23 05:15 WBC 10.9 H RBC 5.38 Hgb 15.8 Hct 47.1 MCV 87.5 MCH 29.4 MCHC 33.5 RDW 13.7 Plt Count 185 MPV 11.1 H Immature Gran % (Auto) 1.0 H Neut % (Auto) 78.1 H Lymph % (Auto) 13.8 L [place] % (Auto) 6.9 Eos % (Auto) 0.0 Baso % (Auto) 0.2 Lymph # (Auto) 1.50 [place] # (Auto) 0.8 H Eos # (Auto) 0.0 Baso # (Auto) 0.0 Abs Immat Gran (auto) 0.11 H Absolute Neuts (auto) 8.5 H Absolute Nucleated RBC 0.0 Nucleated RBC % 0.0 Sodium 133 L Potassium 4.1 Chloride 101 Carbon Dioxide 25 Anion Gap 7 L BUN 20 Creatinine 0.90 Estim Creat Clear Calc 134 Estimated GFR > 60 Glucose 128 H Calcium 7.8 L TSH (Reflex) 0.989 Free T4 1.17 NATALY Scrn Qualitative Pending NATALY [place] Interp Pending Discharge Plan Discharge Attending physician on discharge: Ramo Preciado Consulting providers: Reji Clement; Deisy Galicia; Orion Baker Discharging Clinician: Barbara Golden Patient Disposition: Home, Self-Care Activity: as tolerated Diet: heart healthy Discharge Instructions: Follow up with Pulmonology in 4-8 weeks. Follow up with Cardiology. They will call to set up appointment. Prednisone Taper f
[2023-07-24 18:40] LABS: ANA Cascade Screen Negative (Negative)
== END 2023-07-22 12:10 | disposition home or self-care (01) | DRG 315 ==
LOC: ANHED 18:48 → ANH2MED 07-18 00:31
PROVIDERS: Emergency Medicine; Internal Medicine Critical Care Medicine; Internal Medicine Pulmonary Disease; Admitting Provider Family Medicine; Emergency Provider Physician Assistant; PCP Internal Medicine; Visit Provider Internal Medicine Critical Care Medicine
DX: I31.39 Other pericardial effusion (noninflammatory) (principal); Z68.41 Body mass index [BMI] 40.0-44.9, adult; E78.5 Hyperlipidemia, unspecified; E66.01 Morbid (severe) obesity due to excess calories; I10 Essential (primary) hypertension; J40 Bronchitis, not specified as acute or chronic; M47.812 Spondylosis without myelopathy or radiculopathy, cervical region; Z87.891 Personal history of nicotine dependence; Z87.01 Personal history of pneumonia (recurrent)
CPT/HCPCS: 36415; 36600; 71046; 71275; 80048; 80053; 82805; 83735; 83880; 84100; 84439; 84443; 84484; 85025; 85380; 86038; 93005; 93306; 94640; 94762; 96374; 96375; 96376; 99285; A9270; C8929; G0378; J0360; J1650; J2930; J7512; Q9957; Q9967

== ENCOUNTER 2023-08-07 14:12 | Outpatient (CLI) | payer BC, SELFPAY ==
[2023-08-07 19:00] LABS: Basophils Percent Auto 0.3 % (0.2-1.2); Eosinophils Absolute Auto 0.2 K/mm3 (0-0.3); Hematocrit 44.9 % (42.0-52.0); Hemoglobin 14.8 g/dL (14.0-18.0); Immature Granulocyte Absolute 0.04 K/mm3 (0.00-0.031); Immature Granulocyte Percent A 0.6 % (0-0.5); Lymphocytes Absolute Auto 2.02 K/mm3 (0.9-3.2); Lymphocytes Percent Auto 28.5 % (18.3-44.2); Mean Corpuscular Hemoglobin 29.6 pg (26-34); Mean Corpuscular Volume 89.8 fl (80-100); Mean Platelet Volume 10.7 fl (7.4-10.4); Monocytes Absolute Auto 0.6 K/mm3 (0.1-0.6); Monocytes Percent Auto 8.7 % (2.6-8.5); Neutrophils Absolute Auto 4.2 K/mm3 (1.3-6.7); Neutrophils Percent Auto 58.9 % (45.5-73.1); Platelet Count Result 146 k/mm3 (150-375); Red Cell Distribution Width 14.6 % (11.5-14.5); White Blood Count 7.1 K/mm3 (4.5-10.0)
[2023-08-07 19:57] LABS: Potassium 4.4 mmol/L (3.4-5.0)
[2023-08-07 20:07] LABS: Alanine Aminotransferase 55 U/L (6-50); Albumin Level 3.9 g/dL (3.5-5.1); Alkaline Phosphatase 61 U/L (38-126); Anion Gap 1 mmol/L (8-16); Aspartate Amino Transferase 33 U/L (17-59); Bilirubin,Total 0.6 mg/dL (0.2-1.3); Blood Urea Nitrogen 11 mg/dL (9-20); Calcium 8.3 mg/dL (8.4-10.2); Carbon Dioxide 33 mmol/L (22-30); Chloride 102 mmol/L (98-107); Cholesterol 170 mg/dL (0-200); Estimated Glomerular Filt Rate > 60; Glucose 87 mg/dL (65-110); HDL Direct 37 mg/dL; Sodium 136 mmol/L (137-145); Triglycerides 116 mg/dL (<150)
[2023-08-07 20:09] LABS: LDL Cholesterol Direct 101 mg/dL
== END 2023-08-07 14:13 | disposition home or self-care (01) ==
LOC: ANHGOSHLAB 14:13
PROVIDERS: PCP Internal Medicine; Visit Provider Clinical Nurse Specialist
DX: Z12.5 Encounter for screening for malignant neoplasm of prostate (principal); I10 Essential (primary) hypertension; E78.5 Hyperlipidemia, unspecified; R97.20 Elevated prostate specific antigen [PSA]
CPT/HCPCS: 36415; 80053; 80061; 84153; 85025; G0103

== ENCOUNTER 2023-08-29 07:54 | Outpatient (CLI) | payer BC, SELFPAY ==
--- NOTE | 2023-08-29 17:20 | WPDPFTINT ---
PFT Procedure Performed PFT Procedure Performed Spirometry with Pre/Post Bronchodilator Plethysmography (Lung Vol) Diffusing Cap (DLCO) Flow Vol Loop PFT Interpretation This is a pulmonary function test with pre and post-bronchodilator spirometry, plethysmography and diffusing capacity. The test was performed and results interpreted in accordance with the 2019 and 2005 ATS/ERS Task Force guidelines respectively using the Global Lung Function Initiative-2012 reference equations. Patient demonstrated good effort and cooperation. Reproducibility criteria were met. The quality of the pre bronchodilator spirometry maneuver was Grade A and post bronchodilator spirometry maneuver was Grade A. Findings: Spirometry: The contour the inspiratory and expiratory flow tracing are normal. The pre bronchodilator FVC is 4.26 L, 75% predicted. The pre bronchodilator FEV1 is 3.27 L, 74% predicted. The pre bronchodilator FEV1: FVC ratio 77%. The post bronchodilator FVC is 4.24 L, representing 1% decrease. The post bronchodilator FEV1 is 3.45 L, representing a 5% increase. The post bronchodilator FEV1: FVC ratio is 81%. Plethysmography: The total lung capacity is 6.18 L, 80% predicted. The functional residual capacity is 3.00 L, 74% predicted. The residual volume is 1.65 L, 73% predicted. Diffusing capacity: The diffusing capacity unadjusted for hemoglobin and carboxyhemoglobin is 29.8, 92% predicted. The diffusing capacity adjusted for alveolar volume is 5.31, 123% predicted. Impression: There is a mild restrictive ventilatory abnormality. The spirometry is normal without evidence of an obstructive abnormality. There is no significant improvement after inhaling a single dose of albuterol. The diffusing capacity is normal. There are no prior studies for comparison
== END 2023-08-29 07:55 | disposition home or self-care (01) ==
PROVIDERS: PCP Internal Medicine; Visit Provider Internal Medicine Pulmonary Disease
DX: J40 Bronchitis, not specified as acute or chronic (principal); R94.2 Abnormal results of pulmonary function studies
CPT/HCPCS: 94060; 94726; 94729

== ENCOUNTER 2023-09-25 09:05 | Outpatient (CLI) | payer BC, SELFPAY ==
--- NOTE | 2023-10-12 13:41 | WPDSLEEPSTUD ---
Sleep Study Date of Study: 09/25/23 Ordering Provider: Reji Clement MD Interpreting Physician: Jolene Lopez MD Sleep Study Type: Split Polysomnogram Height: 1.83 m Weight: 148.325 kg Body Mass Index: 44.3 Neck Circumference (inches): 21 Andreas: 9 Reason for Sleep Study Snoring, daytime hypersomnia. Sleep History Carlos Perez is a 52-year-old male with history of hyperlipidemia and hypertension, recently hospitalized for bronchospastic illness who underwent a sleep study for evaluation of snoring and daytime hypersomnia. He occasionally awakens from sleep short of breath. He never awakens at night with heartburn, belching or coughing. He frequently snores and occasionally snores loudly enough for others to complain. He frequently has trouble sleeping when he has a cold. He rarely wakes up gasping for breath during the night. He rarely has breathing problems at night. He rarely sweats excessively at night. He occasionally falls asleep during the day. He does not fall asleep involuntarily and never falls asleep while driving. He occasionally notices his heart pounding or beating irregularly during the night. He never experiences loss of muscle tone with strong emotion. He never feels paralyzed on waking or falling asleep. He does not experience vivid dreams upon waking or falling asleep. He never feels afraid of going to sleep. He rarely has nightmares. He rarely recalls his dreams. He occasionally has thoughts racing through his mind. He rarely feels sad or depressed. He never feels anxiety or worry about things. He rarely notices parts of his body jerk. He never kicks during the night. He never feels crawling or aching feelings in his legs. He never feels leg pain at night. He does not grind his teeth during sleep and never has morning jaw pain. He never feels bothered by pain during the day and is rarely awakened by pain during the night. He frequently wakes up feeling stiff in the morning and rarely wakes up feeling sore and achy in the morning, occasionally with pain in his neck, spine, or joints. Normal bedtime is around 7:00 pm on the weekdays and between 7:00 pm to 10:00 pm on the weekends, usually falling asleep in 10 to 30 minutes. He typically gets about 6 to 8 hours of sleep per night. His wake up time is around 4:30 am on the weekdays and 5:30 am on the weekends. He typically wakes up around 6 times per night and can be awake for 5 to 10 minutes each. He watches television before falling asleep. He takes naps in the afternoon or evening but typically does not feel refreshed from a nap. Habits: Former tobacco smoker. Drinks about 1 to 2 caffeinated beverages per day. Occasional alcohol use, 0 to 8 drinks per week. He does not use recreational substances. COUNTS INCLUDE 234 BEDS AT THE [facility] Past Medical History Medical History Cervical spondylosis COPD (chronic obstructive pulmonary disease) Hyperlipidemia Hypertension Lipoma removed 2016 Morbid obesity due to excess calories Family History Family History Father Hypertension Sibling Acute myocardial infarction Grandparent Acute myocardial infarction Mother Atrial fibrillation Social History Social History Smoking status: Former smoker Smoking end date: 11/18/11 Alcohol intake: current Drinks per week: 8 Substance use: never Lack of Transportation: No Lack of Food: Never True Current Housing: I Have Housing Concerned About Future Housing: No Difficulty Paying Gas/Electric Bills: No Difficulty Paying for Meds: No Currently Unemployed: YES Education: Master's Degree or Higher Difficulty w/ Childcare or Family Care: No Spiritual care concerns: No Medications Home Medications Medication Instructions Recorded Confirmed Type omega-3 fatty acids 1,000 mg 1,000 mg PO DAILY 11/24/20
[2023-10-12 13:44] VITALS: BMI 44.3
== END 2023-09-26 06:37 | disposition home or self-care (01) ==
LOC: ANHCSM 09:07
PROVIDERS: PCP Internal Medicine; Visit Provider Internal Medicine Pulmonary Disease
DX: G47.33 Obstructive sleep apnea (adult) (pediatric) (principal); G47.10 Hypersomnia, unspecified
CPT/HCPCS: 95811

== ENCOUNTER 2023-10-14 14:25 | Outpatient (CLI) | payer BC, SELFPAY ==
--- NOTE | ~2023-10-14 | MR_ITS ---
EXAMINATION: MR abdomen wo/w con DATE: 10/14/2023 15:52 INDICATION: Hepatomegaly, not elsewhere classified. TECHNIQUE: Magnetic resonance imaging (MRI) of the abdomen was performed without and with 20 mL Multi Sam intravenous contrast. COMPARISON: Chest CT 07/17/2023 FINDINGS: There is a moderate-sized pericardial effusion. There are cysts in the liver measuring up to 8 mm. Th e gallbladder, spleen, pancreas, and adrenal glands are normal. There is cortical thinning of the kid neys. There are no dilated loops of bowel. There are no pathologically enlarged lymph nodes. There is no free intraperitoneal fluid. IMPRESSION: 1. Small benign cyst in the liver. 2. Moderate-sized pericardial effusion, stable from 07/17/2023. Reviewed, dictated and finalized at location [facility]. [facility] [employer]
== END 2023-10-14 14:26 | disposition home or self-care (01) ==
PROVIDERS: PCP Internal Medicine; Visit Provider Clinical Nurse Specialist
DX: R16.0 Hepatomegaly, not elsewhere classified (principal); K76.89 Other specified diseases of liver; I31.39 Other pericardial effusion (noninflammatory)
CPT/HCPCS: 74183; A9577

== ENCOUNTER 2023-11-15 08:22 | Outpatient (CLI) | payer BC, SELFPAY ==
[2023-11-15 13:59] LABS: Prostate Specific Antigen 1.6 ng/mL (< OR = 4.0)
== END 2023-11-15 08:23 | disposition home or self-care (01) ==
LOC: ANHGOSHLAB 08:23
PROVIDERS: PCP Internal Medicine; Visit Provider Clinical Nurse Specialist
DX: R97.20 Elevated prostate specific antigen [PSA] (principal)
CPT/HCPCS: 36415; 84153

== ENCOUNTER 2023-12-20 10:44 | Outpatient (CLI) | payer BC, SELFPAY ==
[2023-12-20 18:57] LABS: Basophils Percent Auto 0.5 % (0.2-1.2); Eosinophils Absolute Auto 0.1 K/mm3 (0-0.3); Eosinophils Percent Auto 1.8 % (0-4.4); Hematocrit 46.4 % (42.0-52.0); Hemoglobin 15.5 g/dL (14.0-18.0); Immature Granulocyte Absolute 0.02 K/mm3 (0.00-0.031); Immature Granulocyte Percent A 0.4 % (0-0.5); Lymphocytes Percent Auto 26.5 % (18.3-44.2); Mean Corpuscular HGB Conc 33.4 g/dl (32-36); Mean Corpuscular Hemoglobin 29.6 pg (26-34); Mean Corpuscular Volume 88.7 fl (80-100); Mean Platelet Volume 11.3 fl (7.4-10.4); Monocytes Absolute Auto 0.5 K/mm3 (0.1-0.6); Monocytes Percent Auto 8.3 % (2.6-8.5); Neutrophils Absolute Auto 3.5 K/mm3 (1.3-6.7); Neutrophils Percent Auto 62.5 % (45.5-73.1); Platelet Count Result 196 k/mm3 (150-375); Red Blood Count 5.23 M/mm3 (4.6-6.20); Red Cell Distribution Width 13.3 % (11.5-14.5); White Blood Count 5.7 K/mm3 (4.5-10.0)
[2023-12-20 19:43] LABS: Erythrocyte Sedimentation Rate 5 mm/hr (0-20)
[2023-12-20 19:46] LABS: Rheumatoid Factor < 12.0 IU/ML (<12)
[2023-12-20 19:47] LABS: Alanine Aminotransferase 28 U/L (6-50); Albumin Level 4.2 g/dL (3.5-5.1); Alkaline Phosphatase 81 U/L (38-126); Anion Gap 3 mmol/L (8-16); Aspartate Amino Transferase 22 U/L (17-59); Bilirubin,Total 0.3 mg/dL (0.2-1.3); Blood Urea Nitrogen 11 mg/dL (9-20); CRP < 0.5 mg/dL (<1.0); Carbon Dioxide 32 mmol/L (22-30); Chloride 103 mmol/L (98-107); Estimated Glomerular Filt Rate > 60; Glucose 98 mg/dL (65-110); Potassium 4.6 mmol/L (3.4-5.0); Sodium 138 mmol/L (137-145)
[2023-12-24 01:49] LABS: Lupus dRVVT Screen 38 sec (<=45); PTT-LA Screen 32 sec (<=40)
[2023-12-25 12:42] LABS: ANA Cascade Screen Negative (Negative)
== END 2023-12-20 10:45 | disposition home or self-care (01) ==
LOC: ANHGOSHLAB 10:46
PROVIDERS: PCP Internal Medicine; Visit Provider Clinical Nurse Specialist
DX: M35.3 Polymyalgia rheumatica (principal); I10 Essential (primary) hypertension; J44.9 Chronic obstructive pulmonary disease, unspecified; I31.39 Other pericardial effusion (noninflammatory)
CPT/HCPCS: 36415; 80053; 84443; 85025; 85613; 85652; 85730; 86038; 86140; 86225; 86235; 86364; 86430

== ENCOUNTER 2024-01-30 08:50 | Outpatient (CLI) | payer BC, SELFPAY ==
[2024-01-30 12:56] LABS: Anion Gap 2 mmol/L (8-16); Blood Urea Nitrogen 15 mg/dL (9-20); Calcium 8.9 mg/dL (8.4-10.2); Carbon Dioxide 32 mmol/L (22-30); Chloride 101 mmol/L (98-107); Estimated Glomerular Filt Rate > 60; Glucose 87 mg/dL (65-110); Potassium 4.2 mmol/L (3.4-5.0); Sodium 135 mmol/L (137-145)
== END 2024-01-30 08:51 | disposition home or self-care (01) ==
LOC: ANHGOSHLAB 08:53
PROVIDERS: PCP Internal Medicine; Visit Provider Internal Medicine Cardiovascular Disease
DX: I31.39 Other pericardial effusion (noninflammatory) (principal)
CPT/HCPCS: 36415; 80048

== ENCOUNTER 2024-04-02 08:28 | Outpatient (CLI) | payer BC, SELFPAY ==
[2024-04-02 19:29] LABS: CRP < 0.5 mg/dL (<1.0)
[2024-04-02 19:31] LABS: Erythrocyte Sedimentation Rate 5 mm/hr (0-20)
[2024-04-03 16:32] LABS: JO 1 Antibody <1.0 NEG AI (<1.0 NEG); SS-A <1.0 NEG AI (<1.0 NEG); SS-B <1.0 NEG AI (<1.0 NEG); Scleroderma 70 Antibody <1.0 NEG AI (<1.0 NEG)
[2024-04-08 16:39] LABS: Histone Antibody <1.0 U
== END 2024-04-02 08:29 | disposition home or self-care (01) ==
LOC: ANHGOSHLAB 08:30
PROVIDERS: PCP Internal Medicine; Visit Provider Nurse Practitioner Adult Health
DX: I31.39 Other pericardial effusion (noninflammatory) (principal)
CPT/HCPCS: 36415; 85652; 86038; 86140; 86225; 86235; 86364

== ENCOUNTER 2025-01-05 10:45 | Outpatient (CLI) | payer BC, SELFPAY ==
[2025-01-05 11:59] LABS: Influenza A QL RT-PCR Positive (Negative); Influenza B QL RT-PCR Negative (Negative); RSV RNA, RT-PCR Negative (Negative); SARS-CoV-2 RNA PCR Negative (Negative)
== END 2025-01-05 10:46 | disposition home or self-care (01) ==
LOC: ANHLAB 10:46
PROVIDERS: PCP Internal Medicine; Visit Provider Internal Medicine Pulmonary Disease
DX: U07.1 COVID-19 (principal)
CPT/HCPCS: 87637